=== PATIENT | male | born 1945 | race Caucasian/White ===

== ENCOUNTER 2016-04-14 10:36 | Inpatient (IN) | payer MEDICARE ==
[2016-04-14 11:56] LABS: Glucose,Whole Blood 138 mg/dL (75-99)
[2016-04-14] MEDS ORDERED: SODIUM CHLORIDE 0.9% 1,000 ML IV SCH (12:15)
[2016-04-14] MEDS ORDERED: diphenhydrAMINE 50 MG/ML 1 ML VIAL ONE (12:30)
[2016-04-14] MEDS ORDERED: LIDOCAINE 2% INJ 20 MG/ML (20 ML MDV) ONE (12:30)
[2016-04-14] MEDS ORDERED: MIDAZOLAM 2 MG/2 ML VIAL ONE (12:30)
[2016-04-14] MEDS ORDERED: HEPARIN SODIUM 1,000 UNIT/ML VIAL ONE (12:40)
[2016-04-14] MEDS ORDERED: VERAPAMIL 2.5 MG/ML 2 ML AMP ONE (12:40)
[2016-04-14] MEDS ORDERED: SODIUM CHLORIDE 0.9% (PF) 10 ML VIAL ONE (12:40)
[2016-04-14] MEDS ORDERED: SODIUM CHLORIDE 0.9% 500 ML IV ONE (12:45)
[2016-04-14] MEDS ORDERED: MIDAZOLAM 2 MG/2 ML VIAL IVP ONE (12:50)
[2016-04-14] MEDS ORDERED: diphenhydrAMINE 50 MG/ML 1 ML VIAL IVP ONE (12:50)
[2016-04-14] MEDS ORDERED: LIDOCAINE 2% INJ 20 MG/ML SQ ONE (12:51)
[2016-04-14] MEDS ORDERED: VERAPAMIL SYRINGE (5 MG/10 ML) INTRAARTER ONE (12:53)
[2016-04-14] MEDS ORDERED: HEPARIN SODIUM 1,000 UNIT/ML VIAL IV ONE (12:56)
[2016-04-14] MEDS ORDERED: BIVALIRUDIN BOLUS 250 MG/50 ML IV ONE (13:08)
[2016-04-14] MEDS ORDERED: BIVALIRUDIN 250 MG in SODIUM CHLORIDE 0.9% 50 ML IV ONE (13:09)
[2016-04-14] MEDS ORDERED: TIROFIBAN 12.5MG-250ML NS 250 ML IV ONE (13:09)
[2016-04-14] MEDS ORDERED: NITROGLYCERIN SL TABS 0.4 MG TAB SUBLINGUAL ONE ×2 (13:12)
[2016-04-14] MEDS ORDERED: NITROGLYCERIN 1000MCG/10ML SYRINGE INTRACORON ONE (13:20)
[2016-04-14] MEDS ORDERED: ASPIRIN 81 MG CHEW ONE (13:26)
[2016-04-14] MEDS ORDERED: CLOPIDOGREL 75 MG TAB ONE (13:26)
[2016-04-14] MEDS ORDERED: HYDROmorphone 2 MG/ML 1 ML SYRINGE ONE (13:30)
[2016-04-14] MEDS ORDERED: HYDROmorphone 2 MG/ML 1 ML SYRINGE IVP ONE (13:30)
[2016-04-14] MEDS ORDERED: RX INFO: IV CONTRAST WAS GIVEN 1 EACH MISC MISCELLANE PRN (13:34)
[2016-04-14] MEDS ORDERED: ZOLPIDEM 5 MG TAB PO PRN (13:34)
[2016-04-14] MEDS ORDERED: CLOPIDOGREL 75 MG TAB PO ONE (13:34)
[2016-04-14] MEDS ORDERED: IOHEXOL 350 MG/ML 100 ML BOTTLE INJ ONE (13:34)
[2016-04-14] MEDS ORDERED: MAG HYDROX/AL HYDROX/SIMETH 30 ML CUP PO PRN (13:34)
[2016-04-14] MEDS ORDERED: ATROPINE SULFATE 0.1 MG/ML 10ML SYRINGE IV PRN (13:34)
[2016-04-14] MEDS ORDERED: ASPIRIN 81 MG CHEW PO ONE (13:34)
[2016-04-14] MEDS ORDERED: NITROGLYCERIN SL TABS 0.4 MG TAB SUBLINGUAL PRN (13:34)
[2016-04-14] MEDS: SODIUM CHLORIDE 0.9% 1,000 ML IV SCH (14:03)
[2016-04-14 14:33] VITALS: BMI 27.3
[2016-04-14] MEDS ORDERED: LOSARTAN 50 MG TAB PO SCH (15:45)
[2016-04-14 16:48] LABS: Glucose,Whole Blood 162 mg/dL (75-99)
[2016-04-14] MEDS ORDERED: ATORVASTATIN 80 MG TAB PO SCH (21:00)
[2016-04-14] MEDS ORDERED: METOPROLOL TARTRATE 25 MG TAB PO SCH (21:00)
[2016-04-14] MEDS: METOPROLOL TARTRATE 25 MG TAB PO SCH (21:09)
[2016-04-14] MEDS: ACETAMINOPHEN TAB 325 MG TAB PO PRN (21:10)
--- NOTE | 2016-04-14 21:44 | CC ---
DATE OF SERVICE: 04/14/2016 PROCEDURE: Left heart catheterization and coronary angiography. PERFORMED BY: Dr. Micheal Mansfield. CLINICAL INFORMATION: Mr. Bowens is a 70-year-old gentleman with a history of hypertension, hyperlipidemia, who sees a primary care physician in the [place] area. He presented to [facility] with episode of syncope and also had nondescript chest tightness. He had short runs of wide QRS tachycardia. Troponin profile suggests a non-ST elevation [place] up to 0.12. Given his abnormal EKG, ventricular arrhythmia, syncope and also a non-ST elevation [place], he was advised cardiac catheterization and transferred here for the procedure. PROCEDURE NOTE: Under local anesthesia and strict aseptic precautions, a 6 Colombian introducer was placed in the right radial artery. Using an Ultimate 1 catheter, I performed coronary angiography and a pigtail catheter was used to check LV pressures. I again checked right coronary images using a 3.5 curved right Hannah catheter. Patient had a significant 99% stenosis involving the mid circumflex prior to origin of a fairly decent-sized PDA branch. He had moderate disease in the LAD of about 30% to 40% throughout and also in RCA and other branches of circumflex also had minor irregularities. He was advised intervention of circumflex that was performed expeditiously. CARDIAC CATHETERIZATION FINDINGS: the left ventricular end-diastolic pressure was 12 mmHg without any gradient across the aortic valve. CORONARY ANGIOGRAPHY: Right coronary artery: Dominant vessel gives off distally 2 small branches, PDA and PLV, both of which supply a fair amount of myocardium. The proximal and mid LAD had multiple areas of narrowing of 30% to 40%, but no critical stenosis is noted. Left main coronary artery: This vessel filling almost has what seems to be a separate origin or a very short left main. There is no significant disease in the left main itself. Left anterior descending coronary artery: This is a good caliber vessel, extends along the anterior wall proximally, has about a 30% to 35% narrowing with moderate calcification, gives off a good-sized a diagonal branch that has an ostial lesion of almost 40% to 50% and after the ostial lesion, there is another 30% narrowing. Then the caliber of the LAD improves. It gives off a good-sized second diagonal, then the caliber of the LAD is again narrowed up of 51% and after that, there is diffuse disease throughout until the apex. The LAD therefore has multiple 40% to 50% narrowings and there are 2 diagonal branches. The proximal diagonal is the larger one, has a 50% lesion. Second diagonal is a small caliber, fair distribution vessel, has a 30% to 40% narrowing. After the second diagonal, there is a 50% narrowing in the LAD and it has diffuse disease all the way to the apex. Left posterior circumflex coronary artery: Technically, a nondominant/co-dominant vessel, almost comes in a [id number] origin, gives off a high first obtuse marginal which has a 30% to 40% of narrowing. A second obtuse marginal is noted and second obtuse marginal has no significant disease. Then the continuation of the circumflex has minor irregularities, gives off an AV groove branch and then in the PDA branch, there is a 95% stenosis and the PDA is of a fair caliber, fair distribution. The circumflex therefore has a mid lesion of 95% after 2 obtuse marginal branches. First obtuse marginal has a 40% narrowing. Second is free of significant disease. The PDA is a fair caliber vessel. Prior to the origin, there is a 95% stenosis. LEFT VENTRICULOGRAM: This was not performed. FINAL IMPRESSION: This patient has diffuse disease in right coronary artery and left anterior descending artery, especially left anterior descending artery has multiple areas of diffuse narrowing and the diagonal has a 40% to 50% narrowing. Right coronary artery has another 30% to 40% narrowing. The circumflex is probably almost co-dominant, comes off [id number] next to the left anterior descending artery. The mid circumflex has a 95% stenosis before the origin of the posterior descending artery branch. The left ventricular pressures are normal. There is no gradient across the aortic valve. RECOMMENDATIONS: I recommend intervention of the circumflex, proceeded to perform the same setting.
--- NOTE | 2016-04-14 21:53 | PTCA ---
DATE OF SERVICE: 04/14/2016 PROCEDURE: PTCA and stenting of mid circumflex. PERFORMED BY: Dr. Micheal Mansfield. CLINICAL INFORMATION: Mr. Bowens is a 70-year-old gentleman with a history of hypertension, hyperlipidemia, who sees a primary care physician in the [place] area. He presented to [facility] with episode of syncope and also had nondescript chest tightness. He had short runs of wide QRS tachycardia. Troponin profile suggested a non-ST elevation [place] of up to 0.12. Given his abnormal EKG, ventricular arrhythmia, syncope and also a non-ST elevation [place], he was advised cardiac catheterization and transferred here for the procedure. Following coronary angiography, I recommended intervention of circumflex and proceeded to perform this in the same setting. This patient with a non-ST elevation [place] and has a 95% mid circumflex lesion prior to the origin of a fair-caliber PDA branch. The existing 6 Uzbek introducer in the right radial artery was used to perform the procedure. I used a JL 4.5 curved ( ) catheter to cannulate the left coronary artery. A BMW wire was used to cross the lesion. Pre-dilatation was performed using a 12 mm long, 2.25 caliber Trek balloon. I then advanced a 2.25 caliber, 12 mm Xience stent and deployed this at 12 atmospheres. Patient did not have any significant chest pain, but had some more prominent EKG changes. Excellent angiographic result was achieved without complication. He received Angiomax bolus and infusion as per protocol. He received 600 mg of Plavix. The sheath was taken out and a TR band applied as per protocol and he was sent to the room in stable condition. Excellent angiographic result without complication was achieved. It is also discussed with the patient and also family members, specifically his son. I expect he will be discharged tomorrow if he remains stable. He received Angiomax and bolus as per protocol and also 600 mg of Plavix orally.
[2016-04-15] MEDS: ACETAMINOPHEN TAB 325 MG TAB PO PRN (03:31)
[2016-04-15] MEDS ORDERED: amLODIPine 5 MG TAB PO STA ×2 (03:41→06:53)
[2016-04-15] MEDS: SODIUM CHLORIDE 0.9% 1,000 ML IV SCH (03:54)
[2016-04-15] MEDS ORDERED: LOSARTAN 50 MG TAB PO STA (06:52)
[2016-04-15 07:22] LABS: Basophils % (A) 0 %; CH 31.2; CHCM 33.4; Eosinophils # (A) 0.3 k/uL (0-0.7); Eosinophils % (A) 4 %; HCT 40.3 % (39.0-53.0); HDW 2.78; HGB 13.1 gm/dL (13.0-17.5); Luc # (Auto) 0.17; Luc % (Auto) 3; Lymphocytes # (A) 1.6 k/uL (1.0-4.8); Lymphocytes % (A) 25 %; MCH 30.4 pg (25.0-35.0); MCHC 32.4 g/dL (31.0-37.0); MCV 93.6 fL (80.0-100.0); Mean Platelet Volume 6.8; Monocytes # (A) 0.3 k/uL (0-1.0); Monocytes % (A) 5 %; Neutrophils # (A) 4.3 k/uL (1.3-7.7); Neutrophils % (A) 64 %; RBC 4.31 m/uL (4.30-5.90); RDW 13.5 % (11.5-15.5); WBC 6.7 k/uL (3.8-10.6); WBC (Perox) 7.35
[2016-04-15 07:24] LABS: Anion Gap 11 mmol/L; Blood Urea Nitrogen 15 mg/dL (9-20); Calcium 8.9 mg/dL (8.4-10.2); Carbon Dioxide 27 mmol/L (22-30); Chloride 106 mmol/L (98-107); Glucose 107 mg/dL (74-99); Non-African American GFR(MDRD) >60 (>60 ml/min/1.73 sqM); Sodium 144 mmol/L (137-145)
[2016-04-15] MEDS: METOPROLOL TARTRATE 25 MG TAB PO SCH (07:38)
[2016-04-15 07:41] VITALS: RESP 16
[2016-04-15] MEDS ORDERED: ATORVASTATIN 20 MG TAB PO SCH (09:00)
[2016-04-15] MEDS ORDERED: ASPIRIN 81 MG CHEW PO SCH ×2 (09:00)
[2016-04-15 10:48] VITALS: BP 150/76; PULSE 62; TEMP 97.6
[2016-04-15] MEDS ORDERED: CLOPIDOGREL 75 MG TAB PO SCH (12:00)
[2016-04-15] MEDS ORDERED: LOSARTAN 50 MG TAB PO SCH (12:00)
--- NOTE | 2016-04-15 19:17 | DS ---
DATE OF ADMISSION: 04/14/2016 DATE OF DISCHARGE: 04/15/2016 DISCHARGE DIAGNOSES: 1. Pir-[id number] myocardial infarction. 2. Hypertension. 3. Hypercholesterolemia. PROCEDURES PERFORMED: Left heart catheterization and coronary angiography and PTCA and stenting of circumflex coronary artery with a drug-eluting stent. Mr. Bowens was transferred from [facility] because of a non-ST elevation [place]. He underwent cardiac catheterization and stenting of circumflex from right radial approach uneventfully. Excellent angiographic result was achieved. His postprocedure course was unremarkable. His labs are pending. EKG revealed sinus mechanism, inferolateral nonspecific ST-T changes compatible to baseline. He is absolutely symptom-free. Blood pressure is slightly elevated. I have given him additional losartan 100 mg, and also Norvasc. If the blood pressure is well controlled, he will be discharged home by noon today. Discharge instructions regarding activity, diet and medications were reviewed with the patient as well as his with his son yesterday. I will see him in the office on the at 4:00 p.m. He is advised to do limited activity, especially with his right hand. The right radial cath site is clean and dry with a good pulse. Physical exam revealed blood pressure of 190/80, pulse rate is about 66 per minute. There is no JVD or carotid bruit. S1, S2 heard normally. Short systolic murmur noted. Lungs are clear. Abdomen and lower extremity exam is unremarkable. Right radial cath site is clean and dry. The patient will be discharged, blood pressure control is good and after he is ambulatory without symptoms. I will see him in the office on the of this month.
--- NOTE | 2016-04-15 20:34 | HP ---
DATE OF ADMISSION: 04/14/2016 HISTORY AND PHYSICAL EXAMINATION/DISCHARGE SUMMARY: This is a patient that was seen by our team at [facility]. Patient was transferred here due to intermittent episodes of wide complex tachycardia and prolonged episode of syncope. Patient underwent a cardiac catheterization overnight and received a PCI and PTCA. Although the patient was not physically seen during this hospitalization. Patient was discharged by cardiology. Medications were appropriately reconciled by Dr. Micheal Mansfield. Patient is to follow up with Dr. Mansfield in the next week. Please referred to a consult note for further details of this admission.
[2016-04-15] MEDS ORDERED: amLODIPine 5 MG TAB PO SCH (21:00)
[2016-04-15] MEDS ORDERED: DOXAZOSIN 2 MG TAB PO SCH (21:00)
[2016-04-16] MEDS ORDERED: LOSARTAN 50 MG TAB PO SCH (09:00)
== END 2016-04-15 12:02 | disposition home or self-care (01) | DRG 247 ==
LOC: 6SEL 12:01
PROVIDERS: ADMIT Internal Medicine; ATTEND Internal Medicine
PROC: B2111ZZ Fluoroscopy of Multiple Coronary Arteries using Low Osmolar Contrast (ICD-10-PCS; principal; 2016-04-14 12:30)
PROC: 027034Z Dilation of Coronary Artery, One Artery with Drug-eluting Intraluminal Device, Percutaneous Approach (ICD-10-PCS; principal; 2016-04-14 12:30)
PROC: 4A023N7 Measurement of Cardiac Sampling and Pressure, Left Heart, Percutaneous Approach (ICD-10-PCS; principal; 2016-04-14 12:30)
DX: I21.4 Non-ST elevation (NSTEMI) myocardial infarction (principal); I10 Essential (primary) hypertension; E78.5 Hyperlipidemia, unspecified; E78.00 Pure hypercholesterolemia, unspecified; Z79.899 Other long term (current) drug therapy; I25.10 Atherosclerotic heart disease of native coronary artery without angina pectoris
CPT/HCPCS: 80048; 85025; 93458

== ENCOUNTER → 2016-09-20 | Outpatient (CLI) | payer MEDICARE ==
--- NOTE | 2016-09-20 10:35 | XR ---
EXAMINATION TYPE: XR cervical spine limited DATE OF EXAM: 09/20/2016 CLINICAL HISTORY: pain TECHNIQUE: 3 views of the cervical spine are submitted. COMPARISON: None. FINDINGS: There is satisfactory in alignment without evidence of acute fracture or dislocation. The pre-vertebral soft tissue appears within normal limits. Moderate degenerative disc space narrowing a t C4-5 through C6-7 with ventral spondylosis. Facet joint arthropathy noted. The C1-C2 articulation i s unremarkable on the open mouth view. IMPRESSION: No acute fracture or dislocation is seen in the cervical spine.
== END ==
LOC: RADXRMAIN 10:03
PROVIDERS: ATTEND Family Medicine
DX: M43.6 Torticollis (principal)
CPT/HCPCS: 72040

== ENCOUNTER 2016-11-03 11:45 | Emergency (ER) | payer MEDICARE ==
[2016-11-03 11:53] VITALS: TEMP 98.9
[2016-11-03] MEDS ORDERED: predniSONE 50 MG TAB PO STA (12:36)
[2016-11-03] MEDS ORDERED: HYDROcodone/APAP 7.5-325MG 1 EACH TAB PO ONE (12:36)
--- NOTE | 2016-11-03 13:28 | ED ---
Neck Injury/Pain HPI - General Chief Complaint: Neck Pain/Injury Stated Complaint: NECK, SHOULDER, BACK AND LEFT ARM PAIN Time Seen by Provider: 11/03/16 12:05 Source: patient, family, RN notes reviewed Mode of arrival: wheelchair Limitations: no limitations - History of Present Illness Initial Comments: This is a 71-year-old male who states she's been having neck pain for the past week or so he has had intermittent episodes of this over the recent past. He states he has pain and radiates down to his left shoulder into his left arm. He gets worse with movements and positional changes. He has no cough fevers chills nausea vomiting sweats or other symptoms. 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 Additionally he was acting really for the medication at home he did have an injection he states recently in his scalp. MD Complaint: neck pain - Related Data Home Medications Medication Instructions Recorded Confirmed Doxazosin [Cardura] 2 mg PO DAILY 04/14/16 04/14/16 Previous Rx's Medication Instructions Recorded Aspirin 81 mg PO DAILY #90 chew 04/15/16 Clopidogrel [Plavix] 75 mg PO DAILY #90 tab 04/15/16 Doxazosin [Cardura] 2 mg PO HS tab 04/15/16 Metoprolol Tartrate [Lopressor] 25 mg PO BID #180 tab 04/15/16 Nitroglycerin Sl Tabs [Nitrostat] 0.4 mg SUBLINGUAL Q5M PRN #25 tab 04/15/16 amLODIPine [Norvasc] 5 mg PO BID #90 tab 04/15/16 Hydrocodone/Acetaminophen [[place] 1 each PO Q6HR PRN #20 tab 11/03/16 5-325] predniSONE 20 mg PO BID #10 tab 11/03/16 Allergies Allergy/AdvReac Type Severity Reaction Status Date / Time shellfish derived [Shellfish] Allergy Severe Swelling Verified 11/03/16 11:53 cabbage AdvReac Mild Nausea & Verified 11/03/16 11:53 Vomiting & Diarrhea Review of Systems ROS Statement: Those systems with pertinent positive or pertinent negative responses have been documented in the HPI. ROS Other: All systems not noted in ROS Statement are negative. Past Medical History Past Medical History: Cancer, Diabetes Mellitus, Hyperlipidemia, Hypertension, Myocardial Infarction ([place]), Prostate Disorder Additional Past Medical History / Comment(s): BORDERLINE DM, PROSTATE AND GALLBLADDER CA, LEFT EYE BLOOD CLOT History of Any Multi-Drug Resistant Organisms: None Reported Past Surgical History: Adenoidectomy, Cholecystectomy, Heart Catheterization With Stent, Prostate Surgery, Tonsillectomy Past Anesthesia/Blood Transfusion Reactions: No Reported Reaction Past Psychological History: No Psychological Hx Reported Smoking Status: Former smoker Past Alcohol Use History: None Reported Past Drug Use History: None Reported General Exam - General Exam Comments Initial Comments: This is a well-developed well-nourished awake alert oriented 3 male Limitations: no limitations General appearance: alert Head exam: Present: atraumatic, normocephalic, normal inspection Eye exam: Present: normal appearance, PERRL, EOMI. Absent: scleral icterus, conjunctival injection, periorbital swelling ENT exam: Present: normal exam, mucous membranes moist Neck exam: Present: normal inspection, tenderness (Tenderness palpation along the left lateral neck musculature and trapezius muscle no spinous process tenderness.), full ROM. Absent: meningismus, lymphadenopathy Respiratory exam: Present: normal lung sounds bilaterally. Absent: respiratory distress, wheezes, rales, rhonchi, stridor Cardiovascular Exam: Present: regular rate, normal rhythm, normal heart sounds. Absent: systolic murmur, diastolic murmur, rubs, gallop, clicks GI/Abdominal exam: Present: normal bowel sounds. Absent: distended, tenderness , guarding, rebound, rigid Extremities exam: Present: normal inspection, full ROM, tenderness (Tenderness palpation of the anterior rotator cuff and pectoralis muscle group. This is on the left.), normal capillary refill. Absent: pedal edema, joint swelling, calf tenderness Back exam: Present: normal inspection, full ROM, other (As stated above along the left trapezius musculature.) Neurological exam: Present: alert, oriented X3, CN II-XII intact Psychiatric exam: Present: normal affect, normal mood Skin exam: Present: warm, dry, intact, normal color. Absent: rash Course Vital Signs 11/03/16 11:47 Temperature 98.9 F Pulse Rate 72 Respiratory 16 Rate Blood Pressure 137/66 O2 Sat by Pulse 96 Oximetry Medical Decision Making - Medical Decision Making I did discuss findings with the patient family members the presentation is consistent with cervical radiculopathy. Patient will be placed on oral steroids as well as pain medication to augment when he already has. He is follow-up with his doctor and return when necessary - Radiology Data Radiology results: report reviewed (I did review the imaging and reports evidence of degenerative changes no acute findings however.), image reviewed Disposition Clinical Impression: Cervical radiculopathy Disposition: HOME SELF-CARE Condition: Good Instructions: Cervical Radiculopathy (ED), Neck Pain (ED) Prescriptions: Hydrocodone/Acetaminophen [[place] 5-325] 1 each PO Q6HR PRN #20 tab PRN Reason: Pain predniSONE 20 mg PO BID #10 tab Referrals: Kristine Liu MD [Primary Care Provider] - 1-2 days
--- NOTE | 2016-11-03 13:36 | XR ---
EXAMINATION TYPE: XR cervical spine comp DATE OF EXAM: 11/03/2016 TECHNIQUE: Frontal, lateral, oblique, and open mouth view of the cervical spine are obtained. HISTORY: Pain chronic neck pain COMPARISON: Cervical spine x-ray September 20, 2016 FINDINGS: The cervical spine is visualized in its entirety from C1 thru the top of T1 level, there i s redemonstration of loss of normal cervical curvature without evidence of acute fracture or dislocat ion. The pre-vertebral soft tissue appears within normal limits. The C1-C2 articulation is within n ormal limits on the open mouth view. Vertebral body heights are maintained. There is moderate to advanced disc space narrowing and spurrin g at C6-C7 level redemonstrated. There is mild disc space narrowing with advanced spurring at C5-C6 l evel redemonstrated. There is mild to moderate spurring and disc space narrowing at C4-C5 level redem onstrated. The oblique images demonstrated bilateral mild to moderate multilevel neural foraminal vj rowing in the mid cervical spine due to marginal osteophytes. There is mild to moderate calcified tono que in the bilateral carotid bulbs suspected. IMPRESSION: Loss of normal cervical curvature with multilevel degenerative changes most prominent in the mid cervical spine redemonstrated. No significant change from prior study is identified.
[2016-11-03 13:45] VITALS: BP 133/67; PULSE 64; RESP 20
== END 2016-11-03 13:45 | disposition home or self-care (01) ==
LOC: EC 11:45
DX: M54.12 Radiculopathy, cervical region (principal); I10 Essential (primary) hypertension; I25.2 Old myocardial infarction; E78.5 Hyperlipidemia, unspecified; Z91.013 Allergy to seafood; Z91.018 Allergy to other foods; Z79.899 Other long term (current) drug therapy; Z87.891 Personal history of nicotine dependence
CPT/HCPCS: 99283; 72050; J7512

== ENCOUNTER 2016-11-14 14:02 | Emergency (ER) | payer MEDICARE ==
[2016-11-14 14:12] VITALS: RESP 18
--- NOTE | 2016-11-14 14:40 | ED ---
General Adult HPI - General Chief complaint: Abdominal Pain Stated complaint: Constipated and cannot urinate Time Seen by Provider: 11/14/16 14:10 Source: patient, RN notes reviewed Mode of arrival: ambulatory Limitations: no limitations - History of Present Illness Initial comments: This is a 71-year-old male who presents emergency Department complaining of constipation for 4 days and urinary retention since this morning. Patient denies any fever chills. Patient states she's been taking tramadol presents to get much been constant. Patient states is the second time in the last couple weeks that has had to come to the emergency department because of constipation. Patient complains of some suprapubic abdominal distention and tenderness. Patient denies any recent history of vomiting or diarrhea. Patient denies any chest pain difficulty breathing shortness breath. Patient denies any lightheadedness or dizziness. Patient denies any back pain. Patient denies any recent injury or trauma. - Related Data Home Medications Medication Instructions Recorded Confirmed Doxazosin [Cardura] 2 mg PO DAILY 04/14/16 11/14/16 Atorvastatin [Lipitor] 40 mg PO DAILY 11/14/16 11/14/16 Cyanocobalamin [Vitamin B-12] 500 mcg PO TID 11/14/16 11/14/16 Ibuprofen [Motrin] 400 mg PO Q6HR PRN 11/14/16 11/14/16 Losartan Potassium [Cozaar] 100 mg PO DAILY 11/14/16 11/14/16 Metoprolol Tartrate [Lopressor] 25 mg PO DAILY 11/14/16 11/14/16 Prevagen 1 tab PO DAILY 11/14/16 11/14/16 Previous Rx's Medication Instructions Recorded Aspirin 81 mg PO DAILY #90 chew 04/15/16 Clopidogrel [Plavix] 75 mg PO DAILY #90 tab 04/15/16 amLODIPine [Norvasc] 5 mg PO BID #90 tab 04/15/16 Allergies Allergy/AdvReac Type Severity Reaction Status Date / Time shellfish derived [Shellfish] Allergy Severe Swelling Verified 11/14/16 14:27 cabbage AdvReac Mild Nausea & Verified 11/14/16 14:27 Vomiting & Diarrhea Review of Systems ROS Statement: Those systems with pertinent positive or pertinent negative responses have been documented in the HPI. ROS Other: All systems not noted in ROS Statement are negative. Past Medical History Past Medical History: Cancer, Diabetes Mellitus, Hyperlipidemia, Hypertension, Myocardial Infarction ([place]), Prostate Disorder Additional Past Medical History / Comment(s): BORDERLINE DM, PROSTATE AND GALLBLADDER CA, LEFT EYE BLOOD CLOT History of Any Multi-Drug Resistant Organisms: None Reported Past Surgical History: Adenoidectomy, Cholecystectomy, Heart Catheterization With Stent, Prostate Surgery, Tonsillectomy Past Anesthesia/Blood Transfusion Reactions: No Reported Reaction Past Psychological History: No Psychological Hx Reported Smoking Status: Former smoker Past Alcohol Use History: None Reported Past Drug Use History: None Reported General Exam - General Exam Comments Initial Comments: GENERAL: Patient is well-developed and well-nourished. Patient is nontoxic and well- hydrated and is in mild distress. ENT: Neck is soft and supple. No significant lymphadenopathy is noted. Oropharynx is clear. Moist mucous membranes. Neck has full range of motion without eliciting any pain. EYES: The sclera were anicteric and conjunctiva were pink and moist. Extraocular movements were intact and pupils were equal round and reactive to light. Eyelids were unremarkable. PULMONARY: Unlabored respirations. Good breath sounds bilaterally. No audible rales rhonchi or wheezing was noted. CARDIOVASCULAR: There is a regular rate and rhythm without any murmurs gallops or rubs. ABDOMEN: Mild suprapubic distention. Mild tenderness on palpation SKIN: Skin is clear with no lesions or rashes and otherwise unremarkable. NEUROLOGIC: Patient is alert and oriented x3. Cranial nerves II through XII are grossly intact. Motor and sensory are also intact. Normal speech, volume and content. Symmetrical smile. MUSCULOSKELETAL: Normal extremities with adequate strength and full range of motion. No lower extremity swelling or edema. No calf tenderness. LYMPHATICS: No significant lymphadenopathy is noted PSYCHIATRIC: Normal psychiatric evaluation. Limitations: no limitations Course Vital Signs 11/14/16 11/14/16 11/14/16 14:11 15:27 16:34 Temperature 97.8 F 99.2 F 99.9 F H Pulse Rate 94 83 80 Respiratory 18 18 18 Rate Blood Pressure 144/68 149/72 128/84 O2 Sat by Pulse 96 95 97 Oximetry Medical Decision Making - Lab Data Result diagrams: 11/14/16 15:25 11/14/16 15:25 Lab Results 11/14/16 11/14/16 11/14/16 Range/Units 14:55 15:25 15:25 WBC 15.0 H (3.8-10.6) k/uL RBC 4.00 L (4.30-5.90) m/uL Hgb 12.8 L (13.0-17.5) gm/dL Hct 36.3 L (39.0-53.0) % MCV 90.7 (80.0-100.0) fL MCH 31.9 (25.0-35.0) pg MCHC 35.2 (31.0-37.0) g/dL RDW 14.6 (11.5-15.5) % Plt Count 232 (150-450) k/uL Neutrophils % 86 % Lymphocytes % 7 % Monocytes % 5 % Eosinophils % 1 % Basophils % 0 % Neutrophils # 12.9 H (1.3-7.7) k/uL Lymphocytes # 1.1 (1.0-4.8) k/uL Monocytes # 0.7 (0-1.0) k/uL Eosinophils # 0.1 (0-0.7) k/uL Basophils # 0.0 (0-0.2) k/uL Sodium 137 (137-145) mmol/L Potassium 4.0 (3.5-5.1) mmol/L Chloride 103 (98-107) mmol/L Carbon Dioxide 25 (22-30) mmol/L Anion Gap 9 mmol/L BUN 13 (9-20) mg/dL Creatinine 1.02 (0.66-1.25) mg/dL Est GFR (MDRD) Af Amer >60 (>60 ml/min/1.73 sqM) Est GFR (MDRD) Non-Af >60 (>60 ml/min/1.73 sqM) Glucose 130 H (74-99) mg/dL Calcium 9.4 (8.4-10.2) mg/dL Total Bilirubin 1.3 (0.2-1.3) mg/dL AST 30 (17-59) U/L ALT 83 H (21-72) U/L Alkaline Phosphatase 101 (38-126) U/L Total Protein 6.3 (6.3-8.2) g/dL Albumin 3.8 (3.5-5.0) g/dL Urine Color Dark Brown Urine Appearance Clear (Clear) Urine pH 5.5 (5.0-8.0) Ur Specific Thayer 1.017 (1.001-1.035) Urine Protein Trace H (Negative) Urine Glucose (UA) Negative (Negative) Urine Ketones Negative (Negative) Urine Blood Small H (Negative) Urine Nitrite Negative (Negative) Urine Bilirubin Negative (Negative) Urine Urobilinogen 4.0 (<2.0) mg/dL Ur Leukocyte Esterase Negative (Negative) Urine RBC 39 H (0-5) /hpf Urine WBC 2 (0-5) /hpf Hyaline Casts 13 H (0-2) /lpf Urine Mucus Rare H (None) /hpf Disposition Clinical Impression: Constipation Disposition: HOME SELF-CARE Condition: Good Instructions: Constipation (ED) Referrals: Kristine Liu MD [Primary Care Provider] - 1-2 days Time of Disposition: 18:39
--- NOTE | 2016-11-14 14:48 | XR ---
EXAMINATION TYPE: XR KUB DATE OF EXAM: 11/14/2016 COMPARISON: NONE HISTORY: Pain TECHNIQUE: Single supine KUB image of the abdomen is obtained FINDINGS: Small bowel demonstrates no evidence for dilatation. Scattered nonspecific air-fluid level seen. Gas and fecal material is seen in non-distended colon. No convincing evidence for pneumoperitoneum. No unusual calcifications. The lung bases are clear. The osseous structures are intact. IMPRESSION: 1. Nonspecific bowel gas pattern.
[2016-11-14 15:29] LABS: Appearance,Urine Clear (Clear); Bilirubin,Urine Negative (Negative); Glucose,Urine (UA) Negative (Negative); Ketones,Urine Negative (Negative); Leukocyte Esterase,Urine Negative (Negative); Mucus,Urine Rare /hpf; Nitrite,Urine Negative (Negative); PH, Urine 5.5 (5.0-8.0); Particle Count 3121; Protein,Urine Trace (Negative); RBC,Urine 39 /hpf (0-5); Specific Gravity,Urine 1.017 (1.001-1.035); UA Billing (MACRO vs. MICRO) MICRO; WBC,Urine 2 /hpf (0-5)
[2016-11-14 15:37] LABS: Basophils % (A) 0 %; CH 32.7; CHCM 36.2; Eosinophils # (A) 0.1 k/uL (0-0.7); Eosinophils % (A) 1 %; HCT 36.3 % (39.0-53.0); HDW 2.81; HGB 12.8 gm/dL (13.0-17.5); Luc # (Auto) 0.17; Luc % (Auto) 1; Lymphocytes # (A) 1.1 k/uL (1.0-4.8); Lymphocytes % (A) 7 %; MCH 31.9 pg (25.0-35.0); MCHC 35.2 g/dL (31.0-37.0); MCV 90.7 fL (80.0-100.0); Mean Platelet Volume 7.2; Monocytes # (A) 0.7 k/uL (0-1.0); Monocytes % (A) 5 %; Neutrophils # (A) 12.9 k/uL (1.3-7.7); Neutrophils % (A) 86 %; RDW 14.6 % (11.5-15.5)
[2016-11-14 15:51] LABS: ALT 83 U/L (21-72); AST 30 U/L (17-59); Alkaline Phosphatase 101 U/L (38-126); Anion Gap 9 mmol/L; Blood Urea Nitrogen 13 mg/dL (9-20); Calcium 9.4 mg/dL (8.4-10.2); Carbon Dioxide 25 mmol/L (22-30); Chloride 103 mmol/L (98-107); Glucose 130 mg/dL (74-99); Non-African American GFR(MDRD) >60 (>60 ml/min/1.73 sqM); Sodium 137 mmol/L (137-145); Total Bilirubin 1.3 mg/dL (0.2-1.3); Total Protein 6.3 g/dL (6.3-8.2)
--- NOTE | 2016-11-14 16:38 | CT ---
EXAMINATION TYPE: CT abdomen pelvis wo con DATE OF EXAM: 11/14/2016 COMPARISON: NONE HISTORY: Generalized pain with constipation and inability to urinate CT DLP: 772.9 mGycm Automated exposure control for dose reduction was used. TECHNIQUE: Helical acquisition of images was performed from the lung bases through the pelvis. FINDINGS: There is some atelectasis at the left lung base. There is no pleural effusion. Heart size is normal. Liver shows no focal defect. There are clips from cholecystectomy. Bile ducts are not dilated. Spleen appears normal. There is no pancreatic mass. There is no adrenal mass. Kidneys have normal size and contour. There is no hydronephrosis. Ureters a re not dilated. There is a 1 mm calcification in the lower pole left kidney. There is no retroperitoneal adenopathy. There is no ascites. Appendix appears normal. There is some r etained fecal material in the rectosigmoid colon. Bladder distends smoothly. There are clips from awais arent prostate surgery. I see no bladder mass. There is no evidence of a bony destructive process. Th ere are spondylotic changes in the lumbar spine. Abdominal aorta is atheromatous. IMPRESSION: ATHEROSCLEROTIC VASCULAR DISEASE. CONSTIPATION. NO SIGN OF ACUTE ABDOMEN AND PELVIS. URINARY BLADDER IS NOT DILATED. NO EVIDENCE OF RENAL OBSTRUCTION. PATCHY ATELECTASIS AT THE LEFT LUNG BASE.
[2016-11-14 18:56] VITALS: BP 146/74; PULSE 74; TEMP 100
== END 2016-11-14 18:56 | disposition home or self-care (01) ==
LOC: EC 14:02
DX: K59.00 Constipation, unspecified (principal); E11.9 Type 2 diabetes mellitus without complications; E78.5 Hyperlipidemia, unspecified; I10 Essential (primary) hypertension; I25.2 Old myocardial infarction; Z85.46 Personal history of malignant neoplasm of prostate; Z85.89 Personal history of malignant neoplasm of other organs and systems; Z87.891 Personal history of nicotine dependence; Z79.899 Other long term (current) drug therapy; Z91.013 Allergy to seafood; Z91.018 Allergy to other foods; Z90.49 Acquired absence of other specified parts of digestive tract; Z98.890 Other specified postprocedural states
CPT/HCPCS: 36415; 74000; 74176; 80053; 81001; 85025; 99284

== ENCOUNTER → 2016-12-01 | Outpatient (CLI) | payer MEDICARE ==
--- NOTE | 2016-12-03 00:58 | MR ---
EXAMINATION TYPE: MR cervical spine wo con DATE OF EXAM: 12/01/2016 COMPARISON: NONE HISTORY: Spasmodic Torticollis TECHNIQUE: Multiplanar, multisequence images of the cervical spine were acquired. FINDINGS: The cervical vertebra have fairly normal alignment. There is minimal narrowing of cervical disc spaces. There are small posterior disc bulges at C4-5 C5-6 without significant impingement on th e spinal canal. Cervical spinal cord has normal signal pattern. There is no evidence of edema. Brains tem appears intact. I see no focal bone destruction. There is no compression fracture. There is no ev idence of paraspinal mass. I see no spinal stenosis. The spinal canal measures 9 mm. IMPRESSION: Mild multilevel spondylotic changes. Small anterior and posterior cervical disc herniations at C4-5 C 5-6 without significant impingement on the spinal canal.
== END | disposition home or self-care (01) ==
LOC: RADMRIMAIN 12:02
PROVIDERS: ATTEND Family Medicine
DX: M50.221 Other cervical disc displacement at C4-C5 level (principal); G24.3 Spasmodic torticollis
CPT/HCPCS: 72141

== ENCOUNTER → 2017-04-30 | Outpatient (CLI) | payer MEDICARE ==
--- NOTE | 2017-05-07 10:32 | P.ARTDOP ---
Arterial Doppler LOWER EXTREMITY ARTERIAL DOPPLER: DATE OF SERVICE: 04/30/2016 Reason for study: Suspected lower extremity occlusive disease with foot numbness. Doppler waveforms: Multiphasic bilaterally throughout. Pulse volume recording: Normal configuration. Pressure gradients: None. Ankle-brachial indices: Greater than 1 bilaterally. Toe pressures: [] on the right, [] on the left Impression: Normal study.
== END | disposition home or self-care (01) ==
LOC: RADUSWWP 12:43
PROVIDERS: ATTEND Family Medicine
DX: I73.9 Peripheral vascular disease, unspecified (principal)
CPT/HCPCS: 93923

== ENCOUNTER 2018-08-30 08:56 | Emergency (ER) | payer MEDICARE ==
[2018-08-30 09:11] VITALS: BP 152/84; PULSE 78; RESP 16; TEMP 98.6
[2018-08-30] MEDS ORDERED: ACETAMINOPHEN TAB 325 MG TAB PO STA (09:39)
--- NOTE | 2018-08-30 09:47 | ED ---
General Adult HPI - General Chief complaint: Extremity Injury, Lower Stated complaint: Knee pain Time Seen by Provider: 08/30/18 09:16 Source: patient, RN notes reviewed Mode of arrival: wheelchair Limitations: no limitations - History of Present Illness Initial comments: 73-year-old male with a past medical history of diabetes, hyperlipidemia, hypertension, prostate and gallbladder cancer presents to the emergency department for a chief complaint of right knee pain times about one week. Patient states that one week ago he was laying on the table to have a biopsy done of the skin of his right ankle. States that when they were doing the biopsy they're pressing hard on his right knee and he felt a pop on the lateral side. States that since that time he has had pain with movement. States the pain is worsening and it started to swell yesterday. States he is able to bend and bear weight on the knee. Denies any fevers or chills. Denies any redness of the knee. No history of gout.Patient has no other complaints at this time including shortness of breath, chest pain, abdominal pain, nausea or vomiting, headache, or visual changes. - Related Data Home Medications Medication Instructions Recorded Confirmed Doxazosin [Cardura] 2 mg PO DAILY 04/14/16 11/14/16 Atorvastatin [Lipitor] 40 mg PO DAILY 11/14/16 11/14/16 Cyanocobalamin [Vitamin B-12] 500 mcg PO TID 11/14/16 11/14/16 Ibuprofen [Motrin] 400 mg PO Q6HR PRN 11/14/16 11/14/16 Losartan Potassium [Cozaar] 100 mg PO DAILY 11/14/16 11/14/16 Metoprolol Tartrate [Lopressor] 25 mg PO DAILY 11/14/16 11/14/16 Prevagen 1 tab PO DAILY 11/14/16 11/14/16 Previous Rx's Medication Instructions Recorded Aspirin 81 mg PO DAILY #90 chew 04/15/16 Clopidogrel [Plavix] 75 mg PO DAILY #90 tab 04/15/16 amLODIPine [Norvasc] 5 mg PO BID #90 tab 04/15/16 Allergies Allergy/AdvReac Type Severity Reaction Status Date / Time shellfish derived [Shellfish] Allergy Severe Swelling Verified 08/30/18 09:11 cabbage AdvReac Mild Nausea & Verified 06/29/19 09:11 Vomiting & Diarrhea Review of Systems ROS Statement: Those systems with pertinent positive or pertinent negative responses have been documented in the HPI. ROS Other: All systems not noted in ROS Statement are negative. Past Medical History Past Medical History: Cancer, Diabetes Mellitus, Hyperlipidemia, Hypertension, Myocardial Infarction ([place]), Prostate Disorder Additional Past Medical History / Comment(s): BORDERLINE DM, PROSTATE AND GALLBLADDER CA, LEFT EYE BLOOD CLOT History of Any Multi-Drug Resistant Organisms: None Reported Past Surgical History: Adenoidectomy, Cholecystectomy, Heart Catheterization With Stent, Prostate Surgery, Tonsillectomy Past Anesthesia/Blood Transfusion Reactions: No Reported Reaction Past Psychological History: No Psychological Hx Reported Smoking Status: Former smoker Past Alcohol Use History: None Reported Past Drug Use History: None Reported General Exam Limitations: no limitations General appearance: alert, in no apparent distress Head exam: Present: atraumatic, normocephalic, normal inspection Eye exam: Present: normal appearance, PERRL, EOMI. Absent: scleral icterus, conjunctival injection, periorbital swelling ENT exam: Present: normal exam, mucous membranes moist Neck exam: Present: normal inspection, full ROM. Absent: tenderness, meningismus, lymphadenopathy Respiratory exam: Present: normal lung sounds bilaterally. Absent: respiratory distress, wheezes, rales, rhonchi, stridor Cardiovascular Exam: Present: regular rate, normal rhythm, normal heart sounds. Absent: systolic murmur, diastolic murmur, rubs, gallop, clicks Extremities exam: Present: tenderness (Tenderness to the lateral aspect of the right knee. No tenderness to the posterior aspect of the right knee.), normal capillary refill (Capillary refill less than 2 seconds, DP pulse 2+ in the right lower extremity.), joint swelling (Patient does have edema noted of the right knee. There is no erythema or increased warmth noted of the right knee.), other (Sensation intact in the right lower extremity.). Absent: full ROM (Patient has 90 flexion of the right knee, full range motion of the right ankle and hip.), calf tenderness (No calf tenderness, negative Homans sign.) Neurological exam: Present: alert, oriented X3, CN II-XII intact Psychiatric exam: Present: normal affect, normal mood Course Vital Signs 08/30/18 09:08 Temperature 98.6 F Pulse Rate 78 Respiratory 16 Rate Blood Pressure 152/84 O2 Sat by Pulse 95 Oximetry Medical Decision Making - Medical Decision Making 73-year-old male presents to the emergency department for a chief complaint of right knee pain times one week. Patient had a biopsy about a week ago of the skin of the right ankle. Patient states they held pressure down on his knee for this and he felt a pop in the lateral aspect. States he is ambulatory on it. Denies any erythema. Denies any fevers. On exam patient is 90 flexion of the right knee. There is some edema noted, likely effusion. No erythema or increased warmth noted. No evidence or concern for infection. No calf tenderness. DP pulse 2+ in the right lower extremity and warm to touch. Sensation intact in the right lower extremity. X-ray of the right knee shows no acute osseous lesion. There are the earliest changes of osteoarthritis with a small effusion. At this time there is concern for ligamentous injury. Patient was placed in a knee immobilizer. Patient will follow up with orthopedics in one to 2 days. He will return here if he has any worsening symptoms. Disposition Clinical Impression: Knee effusion, right, Knee injury Disposition: HOME SELF-CARE Condition: Good Instructions (If sedation given, give patient instructions): Knee Pain (ED) Additional Instructions: Please follow up with orthopedics in 1-2 days. Wear knee immobilizer. Use crutches as needed. Please return here to the emergency Department if any worsening symptoms. Is patient prescribed a controlled substance at d/c from ED?: No Referrals: Kristine Liu MD [Primary Care Provider] - 1-2 days Venancio Bass MD [STAFF PHYSICIAN] - 1-2 days Time of Disposition: 10:39
--- NOTE | 2018-08-30 10:14 | XR ---
EXAMINATION TYPE: XR knee complete RT , 3 VIEWS DATE OF EXAM ORDERED: 08/30/2018 HISTORY: Pain. COMPARISON: None. FINDINGS: No fracture or dislocation is seen. There is some peaking of the intercondylar spines. Rossy nt spaces are reasonably well-maintained. There is some fullness in the patellar region. I could not exclude a small effusion. IMPRESSION: 1. NO ACUTE OSSEOUS LESION. 2. EARLIEST CHANGES OF OSTEOARTHRITIS WITH A SMALL, CONCOMITANT EFFUSION.
== END 2018-08-30 11:09 | disposition home or self-care (01) ==
LOC: EC 08:56
DX: S89.91XA Unspecified injury of right lower leg, initial encounter (principal); M17.11 Unilateral primary osteoarthritis, right knee; E78.5 Hyperlipidemia, unspecified; I10 Essential (primary) hypertension; I25.2 Old myocardial infarction; Z85.09 Personal history of malignant neoplasm of other digestive organs; Z85.46 Personal history of malignant neoplasm of prostate; Z95.5 Presence of coronary angioplasty implant and graft; Z87.891 Personal history of nicotine dependence; Z79.899 Other long term (current) drug therapy; Z91.013 Allergy to seafood; Z91.018 Allergy to other foods; Z98.890 Other specified postprocedural states
CPT/HCPCS: 99283; 73562; L1830

== ENCOUNTER → 2018-11-06 | Outpatient (CLI) | payer MEDICARE ==
--- NOTE | 2018-11-06 16:21 | US ---
EXAMINATION TYPE: US thyroid st tissue head/neck DATE OF EXAM: 11/06/2018 COMPARISON: NONE CLINICAL HISTORY: E04.1 THYROID NODULE. Thyroid nodule GLAND SIZE: Right Lobe: 5.2 x 2.7 x 2.7 cm Overall Parenchyma: heterogenous Left Lobe: 5.4 x 2.5 x 2.1 cm Overall Parenchyma: heterogeneous Isthmus Thickness: 0.6 cm NODULES RIGHT: # of nodules measured on right: 2 1. 1.2 X 0.8 x 1.2 cm hypoechoic solid nodule at the upper pole with well-defined margins; . This nodule is wider than tall and shows intranodular vascularity. Prior size: no prior 2. 0.8 X 0.5 x 0.9 cm mixed nodule at the mid pole with well-defined margins; . This nodule is wide r than tall and shows intranodular vascularity. Prior size: no prior LEFT: # of nodules measured on left: 2 1. 0.9 X 0.6 x 0.9 cm hypoechoic solid nodule at the lower pole with well-defined margins; . This nodule is wider than tall and shows no intranodular vascularity. Prior size: no prior 2. 1.5 X 1.1 x 1.4 cm hypoechoic nodule at the lower pole with well-defined margins; . This nodule is wider than tall and shows no intranodular vascularity. Prior size: no prior ISTHMUS: # of nodules measured in the isthmus: 0 Bilateral neck scanned, normal appearing lymph nodes IMPRESSION: Bilateral thyroid nodules. Fine-needle aspiration could be considered of the most dominan t nodules bilaterally given the solid nature and internal vascularity. Alternatively given their size short-term follow-up in 6-12 months could ensure stability if fine-needle aspiration is forgone.
== END | disposition home or self-care (01) ==
LOC: RADUSWWP 15:21
PROVIDERS: ATTEND Internal Medicine
DX: E04.2 Nontoxic multinodular goiter (principal)
CPT/HCPCS: 76536

== ENCOUNTER → 2018-11-07 | Outpatient (CLI) | payer MEDICARE ==
--- NOTE | 2018-11-07 14:36 | XR ---
EXAMINATION TYPE: XR lumbosacral spine min 4V DATE OF EXAM: 11/07/2018 CLINICAL HISTORY: Low back pain with no known injury TECHNIQUE: Frontal, lateral, and oblique images of the lumbar spine are obtained. COMPARISON: 04/22/2012 FINDINGS: There is a dextroscoliosis of the lumbar spine and extensive multilevel degenerative disc d isease. There are bridging anterior osteophytes, facet arthropathy, intervertebral disc space narrowi ng, and endplate sclerosis throughout the lumbar spine. Vertebral body heights of the lumbar spine ar e maintained as well as alignment. Oblique images demonstrate neural foraminal narrowing on the right at L1-L2 and L2-L3 and on the left at L1-L2, L2-L3, and L5-S1. IMPRESSION: No extensive multilevel degenerative disc disease of the lumbar spine comparison to the exam of 2012. Redemonstration of dextroscoliosis. No acute fracture of the lumbar spine.
== END | disposition home or self-care (01) ==
LOC: RADXRMAIN 14:05
PROVIDERS: ATTEND Family Medicine
DX: M41.87 Other forms of scoliosis, lumbosacral region (principal)
CPT/HCPCS: 72110

== ENCOUNTER → 2019-03-09 | Outpatient (CLI) | payer MEDICARE ==
--- NOTE | 2019-03-10 04:58 | CT ---
EXAMINATION TYPE: High-resolution CT chest DATE OF EXAM: 03/09/2019 COMPARISON: None HISTORY: 73-year-old male R06.00, dyspnea, shortness of breath, nodules TECHNIQUE: Contiguous high resolution axial scanning of the chest without IV contrast utilizing 1 mm slice thickness and 1 cm gap per HRCT protocol. Both prone and supine imaging was performed. CT DLP: 1031.5 mGycm Automated exposure control for dose reduction was used. FINDINGS: Heart normal size without pericardial effusion. Three-vessel coronary artery calcifications are prese nt. Upper ascending aorta borderline aneurysmal at 4.0 cm. Mild atherosclerotic arch calcifications. Conv entional arch vessel branching anatomy. Scattered nonenlarged mediastinal lymph nodes. No thoracic lymphadenopathy by CT size criteria. Evaluation of the lungs shows some strandy bibasilar atelectasis and scarring with mild bibasilar bro nchiectasis in the lower lobes. Additional mild dependent atelectasis. No honeycombing, centrilobular or tree-in-bud nodules, and dominant groundglass densities, perilympha tic nodularity, thickening of the bronchovascular bundles, are cystic changes identified. No signific ant interstitial thickening identified. Visualized upper abdomen shows no gross abnormality. Cholecystectomy clips. Bones: Endplate spondylosis mid to lower thoracic spine. IMPRESSION: 1. NOTE THAT IF THERE IS CONCERN FOR UNDERLYING PULMONARY NODULES, A CONVENTIONAL CT OF THE CHEST CAN BE PERFORMED. HRCT IS LIMITED DUE TO RECONSTRUCTION TECHNIQUE. 2. CAD. 3. 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 4. BIBASILAR STRANDY SCARRING WITH ASSOCIATED MILD BIBASILAR ATELECTASIS. HOWEVER, OTHERWISE, THERE A RE NO SPECIFIC HRCT FINDINGS OF INTERSTITIAL LUNG DISEASE OR INTERSTITIAL PNEUMONITIS.
== END | disposition home or self-care (01) ==
LOC: RADCTMAIN 15:59
PROVIDERS: ATTEND Family Medicine
DX: I25.10 Atherosclerotic heart disease of native coronary artery without angina pectoris (principal); J98.11 Atelectasis
CPT/HCPCS: 71250

== ENCOUNTER → 2019-04-02 | Outpatient (CLI) | payer MEDICARE ==
--- NOTE | 2019-04-02 13:36 | CT ---
EXAMINATION TYPE: CT angio chest DATE OF EXAM: 04/02/2019 COMPARISON: CT chest March 09, 2019 HISTORY: Elevated D dimer CT DLP: 439.8 mGycm. Automated Exposure Control for Dose Reduction was Utilized. CONTRAST: CTA scan of the thorax is performed with IV Contrast, patient injected with 100 mL of Isovue 370, pul monary embolism protocol. MIP Images are created on CT scanner and reviewed. FINDINGS: LUNGS: Focal linear scarring in both bases right greater than left just above diaphragm redemonstrate d. Some dependent atelectasis bilateral lower lobes. No suspicious new focal consolidation. There is no pleural effusion or pneumothorax seen. No suspicious nodules or masses. The tracheobronchial tree is patent. MEDIASTINUM: There is slightly suboptimal study with some heterogeneity and near equal contrast in ri ght and left heart systems but no CT evidence for acute pulmonary embolism. There are no greater fadi n 1 cm hilar or mediastinal lymph nodes. No cardiomegaly or pericardial effusion is seen. Moderate to severe coronary artery calcification is redemonstrated which is noted marker for underlying hutchinson ry artery disease. OTHER: Small degree of bilateral subareolar gynecomastia. Cholecystectomy clips. [id number] mul tilevel spurring in the spine. Spleen measures upper limits of normal at 12.7 cm long axis coronal im age 89. IMPRESSION: Suboptimal study without CT evidence for acute pulmonary embolism. No new suspicious acut e pulmonary process.
--- NOTE | 2019-04-02 13:52 | US ---
EXAMINATION TYPE: US venous doppler duplex LE DATE OF EXAM: 04/02/2019 12:45 PM COMPARISON: NONE CLINICAL HISTORY: R79.1 Abnormal Labs, Elevated D dimer,. SIDE PERFORMED: Bilateral TECHNIQUE: The lower extremity deep venous system is examined utilizing real time linear array sonog adriana with graded compression, doppler sonography and color-flow sonography. VESSELS IMAGED: External Iliac Vein (EIV) Common Femoral Vein Deep Femoral Vein Greater Saphenous Vein * Femoral Vein Popliteal Vein Small Saphenous Vein * Proximal Calf Veins (* superficial vessels) Grayscale, color doppler, spectral doppler imaging performed of the deep veins of the lower extremiti es. There is normal flow, compressibility, vascular waveforms. Right Leg: Negative for DVT Left Leg: Negative for DVT IMPRESSION: No sonographic evidence of deep venous thrombosis within either the bilateral lower extre mities.
== END | disposition home or self-care (01) ==
LOC: RADUSMAIN 11:42
PROVIDERS: ATTEND Family Medicine
DX: R79.1 Abnormal coagulation profile (principal)
CPT/HCPCS: 82565; 84520; 93970; 71275; 36415; Q9967

== ENCOUNTER 2019-09-07 09:09 | Day surgery (SDC) | payer MEDICARE ==
[2019-09-03 09:20] VITALS: BMI 28.3
[~2019-09-07 09:09] MED LIST: LACTATED RINGERS 1,000 ML IV SCH
[2019-09-07 09:37] VITALS: TEMP 97.9
[2019-09-07] MEDS ORDERED: LIDOCAINE 1% (10MG/ML) FOR IV START INTRADERMA ONE (09:49)
[2019-09-07 10:14] LABS: Glucose,Whole Blood 92 mg/dL (75-99)
[2019-09-07] MEDS ORDERED: LIDOCAINE 1% INJ 10MG/ML (20 ML MDV) ONE (10:53)
[2019-09-07] MEDS ORDERED: PROPOFOL 10 MG/ML 20 ML VIAL IV ONE (10:53)
--- NOTE | 2019-09-07 11:17 | P.PCN ---
Date of Procedure: 09/07/19 Description of Procedure: BRIEF HISTORY: Patient is a 74-year-old male who presents for outpatient esophagogastroduodenoscopy for evaluation of melena. Reports some dark colored bowel movements occurring over the last few weeks. Does report a remote history of peptic ulcer disease. Denies any abdominal pain. Denies any reflux disease. PROCEDURE PERFORMED: Esophagogastroduodenoscopy with biopsy. PREOPERATIVE DIAGNOSIS: Melena. ESTIMATED BLOOD LOSS: Minimal. IV sedation per anesthesia. PROCEDURE: After informed consent was obtained, the patient was brought into the endoscopy unit. IV sedation was administered by Anesthesia under continuous monitoring. Initially the Olympus GIF-190 video endoscope was inserted into the mouth. Esophagus intubated without any difficulty. It was gradually advanced into the stomach and duodenum and carefully examined. The bulb and the second part of the duodenum appeared normal, with biopsies taken. The scope at this time was withdrawn to the stomach, adequately insufflated with air, and upon careful examination, mucosa of the antrum, body, cardia and the fundus appeared normal, except for some mild scattered erythema in the antrum and body suggestive of mild gastritis with biopsies taken. There was also a thickened fold in the antrum just proximal to the pylorus which appeared benign in nature, but was biopsied. The scope was then withdrawn into the esophagus. The GE junction was located at 42 cm from the incisors. The esophagus appeared normal. There were no erosions or ulcerations seen and the patient tolerated the procedure well. IMPRESSION: 1. No active bleeding, old blood or pathology to explain symptoms of melena. 2. Mild gastritis antrum and body, biopsied. 3. Benign-appearing thickened gastric fold in the antrum which was biopsied. 4. Duodenal biopsies. RECOMMENDATIONS: The findings of this examination were discussed with the patient. Okay to resume diet. Okay to resume medications. Await pathology from biopsies. Follow up with primary care physician as previously scheduled.
[2019-09-07 11:20] VITALS: RESP 16
[2019-09-07 11:34] VITALS: BP 143/73; PULSE 58
== END 2019-09-07 11:53 | disposition home or self-care (01) ==
LOC: ORWHC2ENDO 09:09
PROVIDERS: ATTEND Internal Medicine
DX: K29.51 Unspecified chronic gastritis with bleeding (principal); K31.89 Other diseases of stomach and duodenum; I25.2 Old myocardial infarction; I25.10 Atherosclerotic heart disease of native coronary artery without angina pectoris; I10 Essential (primary) hypertension; E11.9 Type 2 diabetes mellitus without complications; M54.2 Cervicalgia; N42.9 Disorder of prostate, unspecified; Z87.891 Personal history of nicotine dependence; Z91.048 Other nonmedicinal substance allergy status; Z91.013 Allergy to seafood; Z91.018 Allergy to other foods; Z88.5 Allergy status to narcotic agent; Z79.899 Other long term (current) drug therapy; Z79.84 Long term (current) use of oral hypoglycemic drugs; Z79.51 Long term (current) use of inhaled steroids; Z90.89 Acquired absence of other organs; Z90.49 Acquired absence of other specified parts of digestive tract; Z98.890 Other specified postprocedural states; Z95.5 Presence of coronary angioplasty implant and graft; Z85.09 Personal history of malignant neoplasm of other digestive organs; Z86.718 Personal history of other venous thrombosis and embolism; Z87.11 Personal history of peptic ulcer disease
CPT/HCPCS: 88305; 88342; 43239; J2001; J2704

== ENCOUNTER 2019-09-30 12:56 | Emergency (ER) | payer MEDICARE ==
[2019-09-30 13:11] VITALS: RESP 18; TEMP 98.1
--- NOTE | 2019-09-30 13:37 | ED ---
General Adult HPI - General Chief complaint: Back Pain/Injury Stated complaint: lower right back pain Time Seen by Provider: 09/30/19 13:35 Source: patient Mode of arrival: wheelchair Limitations: no limitations - History of Present Illness Initial comments: Patient presents the ED with his son for evaluation. Patient states that he has had right lumbar back pain for the past week or so. Patient states that his back pain has become worse over the past 2 days. Patient states his pain radiates into his right buttock region. Patient states that he was provided with a prescription for hydrocodoneacetaminophen by his PCP. He states that he has been taking this medication since yesterday without much relief. Patient states that his pain is worse with position changes. Patient denies known trauma or injury, fever or chills, headache, focal numbness/weakness/neuro deficit, chest pain, dyspnea, dizziness, abdominal pain, nausea/vomiting, dysu [place] or urinary symptoms, incontinence/urinary retention, or any other symptoms or complaints. Patient states that he has an order for an MRI from his PCP, but he has yet to schedule it. - Related Data Home Medications Medication Instructions Recorded Confirmed Atorvastatin [Lipitor] 40 mg PO HS 11/14/16 09/30/19 Cyanocobalamin [Vitamin B-12] 500 mcg PO TID 11/14/16 09/30/19 Metoprolol Tartrate [Lopressor] 25 mg PO DAILY 11/14/16 09/30/19 Cyclobenzaprine [Flexeril] 5 mg PO TID PRN 09/03/19 09/30/19 Donepezil [Aricept] 10 mg PO HS 09/03/19 09/30/19 Fluticasone/Vilanterol [Breo 1 puff INHALATION RT-DAILY 09/03/19 09/30/19 Ellipta 200-25 Mcg INH] Gabapentin [Neurontin] 300 mg PO BID 09/03/19 09/30/19 Glimepiride [Amaryl] 2 mg PO BID 09/03/19 09/30/19 Isosorbide Mononitrate ER [Imdur] 60 mg PO DAILY 09/03/19 09/30/19 Multivitamins, Thera [Multivitamin 1 tab PO PC-LUNCH 09/03/19 09/30/19 (formulary)] Pantoprazole [Protonix] 40 mg PO DAILY 09/03/19 09/30/19 Potassium Chloride 10 meq PO DAILY 09/03/19 09/30/19 Valsartan [Diovan] 160 mg PO BID 09/03/19 09/30/19 hydroCHLOROthiazide 25 mg PO DAILY 09/03/19 09/30/19 Cinnamon Bark [Cinnamon] 1,000 mg PO DAILY 09/30/19 09/30/19 HYDROcodone/APAP 5-325MG [[place] 1 tab PO TID PRN 09/30/19 09/30/19 5-325] Lipo Flavonoid 2 tab PO TID-W/MEALS 09/30/19 09/30/19 Prasterone (Dhea)/Calcium Carb 1 tab PO DAILY 09/30/19 09/30/19 [Dhea 50 mg Tablet] Prevagen 1 tab PO DAILY 09/30/19 09/30/19 Ubidecarenone [Co Q-10] 100 mg PO DAILY 09/30/19 09/30/19 Previous Rx's Medication Instructions Recorded methylPREDNISolone Dose Pack 4 mg PO DIRECTED #21 package 09/30/19 [Medrol Dose Pack] Allergies Allergy/AdvReac Type Severity Reaction Status Date / Time shellfish derived [Shellfish] Allergy Severe Swelling Verified 09/30/19 14:09 iodine Allergy Unknown Verified 09/30/19 14:09 cabbage AdvReac Mild Nausea & Verified 09/30/19 14:09 Vomiting & Diarrhea Review of Systems ROS Statement: Those systems with pertinent positive or pertinent negative responses have been documented in the HPI. ROS Other: All systems not noted in ROS Statement are negative. Past Medical History Past Medical History: Cancer, Diabetes Mellitus, Hyperlipidemia, Hypertension, Myocardial Infarction ([place]), Prostate Disorder Additional Past Medical History / Comment(s): BORDERLINE DM, PROSTATE AND GALLBLADDER CA, LEFT EYE BLOOD CLOT Last Myocardial Infarction Date:: . History of Any Multi-Drug Resistant Organisms: None Reported Past Surgical History: Adenoidectomy, Cholecystectomy, Heart Catheterization With Stent, Prostate Surgery, Tonsillectomy Past Anesthesia/Blood Transfusion Reactions: No Reported Reaction Date of Last Stent Placement:: 2014 Past Psychological History: No Psychological Hx Reported Smoking Status: Never smoker Past Alcohol Use History: Occasional Past Drug Use History: None Reported General Exam Limitations: no limitations General appearance: alert, in no apparent distress Head exam: Present: atraumatic, normocephalic Eye exam: Present: normal appearance, EOMI ENT exam: Present: mucous membranes moist Neck exam: Absent: tenderness Respiratory exam: Present: normal lung sounds bilaterally. Absent: respiratory distress, wheezes, rales, rhonchi Cardiovascular Exam: Present: regular rate, normal rhythm, normal heart sounds, other (Normal radial pulses bilaterally) GI/Abdominal exam: Present: soft. Absent: distended, tenderness, guarding Extremities exam: Present: full ROM. Absent: tenderness, pedal edema, calf tenderness Back exam: Present: normal inspection, other (Mild right lumbar tenderness). Absent: CVA tenderness (R), CVA tenderness (L), vertebral tenderness Neurological exam: Present: alert, oriented X3, other (Patient has no evidence of lower extremity neurological deficit or saddle anesthesia on exam). Absent: motor sensory deficit Psychiatric exam: Present: normal affect, normal mood Skin exam: Present: warm, dry, intact, normal color Course Vital Signs 09/30/19 13:07 Temperature 98.1 F Pulse Rate 63 Respiratory 18 Rate Blood Pressure 172/85 O2 Sat by Pulse 96 Oximetry - Reevaluation(s) Reevaluation #1: 09/30/19 15:20 Patient states that his pain has improved with ED treatment. Patient denies d evelopment of any new symptoms while in the ED. Patient remains alert and breathing comfortably. Patient and son are aware of the patient's CT findings. Patient feels comfortable going home with his son at this time. Patient was counseled about lumbar back pain with radiculopathy. Patient was clearly explained return and follow-up instructions. Patient was instructed to follow up closely with his primary care provider. Patient was comfortable with this plan. Medical Decision Making - Medical Decision Making Patient's CT lumbar spine shows no evidence of acute fracture or acute process. Patient has no evidence of lower extremity neurological deficit or saddle anesthesia on exam. Patient denies incontinence or urinary retention. Patient has an order in place to obtain an MRI. I do not think that an emergent MRI is necessary at this time. I suspect that the patient's symptoms are likely secondary to lumbar back pain with radiculopathy. Patient feels comfortable going home with his son at this time. Will provide the patient with a prescription for a Medrol Dosepak in addition to the hydrocodoneacetaminophen that he has been prescribed by his primary care provider. - Radiology Data Radiology results: report reviewed (CT lumbar spine without contrast: No acute osseous abnormality; multilevel degenerative changes with moderate canal stenosis at L2-L3 and L4-L5, and varying degrees of neural foramina narrowing) Disposition Clinical Impression: Lumbar back pain with radiculopathy affecting right lower extremity Disposition: HOME SELF-CARE Condition: Stable Instructions (If sedation given, give patient instructions): Acute Low Back Pain (ED), Lumbar Radiculopathy (ED) Additional Instructions: Return to the ER immediately should you develop new or worsening pain, leg numbness or weakness, trouble controlling your bladder or bowels, a fever, shortness of breath, feeling dizzy or faint, vomiting, or new or worsening symptoms. Follow up closely with your primary care provider. Prescriptions: methylPREDNISolone Dose Pack [Medrol Dose Pack] 4 mg PO DIRECTED #21 package Is patient prescribed a controlled substance at d/c from ED?: No Referrals: Kristine Liu MD [Primary Care Provider] - 1-2 days Time of Disposition: 15:29
[2019-09-30] MEDS ORDERED: HYDROmorphone 1 MG/ML 1 ML SYRINGE IM STA (13:42)
--- NOTE | 2019-09-30 15:01 | CT ---
EXAMINATION TYPE: CT lumbar spine wo con DATE OF EXAM: 09/30/2019 2:57 PM COMPARISON: Lumbar radiograph 11/07/2018 HISTORY: Low back pain. Right lumbar back pain. CT DLP: 1122.6 mGycm Automated exposure control for dose reduction was used. Unenhanced CT of the lumbar spine was performed. Bone and soft tissue window settings are submitted as well as coronal and sagittal reconstructions. There is dextroscoliosis of the lumbar spine. Multilevel disc space narrowing, vacuum disc phenomenon , osteophytosis, and facet arthropathy contribute to varying degrees of neural foramina narrowing. Th ere is moderate canal stenosis at L2-3 and L4-5. No abdominal aortic aneurysm. No acute osseous abnormality. Vertebral body heights are maintained. IMPRESSION: 1. No acute osseous abnormality. 2. Multilevel degenerative changes with moderate canal stenosis at L2-L3 and L4-L5, and varying degr ees of neural foramina narrowing.
[2019-09-30 15:36] VITALS: BP 154/88; PULSE 71
== END 2019-09-30 15:36 | disposition home or self-care (01) ==
LOC: EC 12:56
DX: M54.16 Radiculopathy, lumbar region (principal); E78.5 Hyperlipidemia, unspecified; I10 Essential (primary) hypertension; E11.9 Type 2 diabetes mellitus without complications; I25.2 Old myocardial infarction; Z79.51 Long term (current) use of inhaled steroids; Z79.84 Long term (current) use of oral hypoglycemic drugs; Z79.899 Other long term (current) drug therapy; Z91.013 Allergy to seafood; Z91.048 Other nonmedicinal substance allergy status; Z91.018 Allergy to other foods; Z85.09 Personal history of malignant neoplasm of other digestive organs; Z85.46 Personal history of malignant neoplasm of prostate; Z95.5 Presence of coronary angioplasty implant and graft
CPT/HCPCS: 72131; 99283; 96372; J1170

== ENCOUNTER 2019-10-10 11:16 | Emergency (ER) | payer MEDICARE ==
[2019-10-10] MEDS ORDERED: HYDROcodone/APAP 7.5-325MG 1 EACH TAB PO ONE (11:41)
--- NOTE | 2019-10-10 12:15 | XR ---
EXAMINATION TYPE: XR Hip RT and AP Pelvis DATE OF EXAM: 10/10/2019 COMPARISON: NONE HISTORY: Pain TECHNIQUE: A single AP view of the pelvis is obtained. Two views of the right hip are obtained. FINDINGS: Severe degenerative change lower lumbar spine. SI joints symmetric. Spurring of along the u pper crests of the iliac bones. Surgical clips in the pelvis and there is arthropathy of the hips siena aterally with hypertrophic change of the acetabulum. IMPRESSION: 1. 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
--- NOTE | 2019-10-10 12:33 | ED ---
Back Pain [facility] - General Chief Complaint: Back Pain/Injury Stated Complaint: Lower Back Pain Time Seen by Provider: 10/10/19 11:30 Source: patient Limitations: no limitations - History of Present Illness Initial Comments: 74-year-old male presenting today for chief complaint of right-sided low back pain. Patient states she's had right lower sided back pain for the past 2 weeks. Patient states that it does not seem to be getting better. Patient denies any radiation of the leg he denies any loss of bowel bladder control denies urinary retention he denies IV drug use history of cancer he denies a weakness of the lower extremities he states he is able to ambulate without difficulty however this induces pain. He denies sensation loss of the legs. Patient denies new trauma or falls. Patient denies additional complaints. He appears well no distress. Denies urinary symptoms or hematuria denies history of kidney stones or upper back or flank pain - Related Data Home Medications Medication Instructions Recorded Confirmed Atorvastatin [Lipitor] 40 mg PO HS 11/14/16 09/30/19 Cyanocobalamin [Vitamin B-12] 500 mcg PO TID 11/14/16 09/30/19 Metoprolol Tartrate [Lopressor] 25 mg PO DAILY 11/14/16 09/30/19 Cyclobenzaprine [Flexeril] 5 mg PO TID PRN 09/03/19 09/30/19 Donepezil [Aricept] 10 mg PO HS 09/03/19 09/30/19 Fluticasone/Vilanterol [Breo 1 puff INHALATION RT-DAILY 09/03/19 09/30/19 Ellipta 200-25 Mcg INH] Gabapentin [Neurontin] 300 mg PO BID 09/03/19 09/30/19 Glimepiride [Amaryl] 2 mg PO BID 09/03/19 09/30/19 Isosorbide Mononitrate ER [Imdur] 60 mg PO DAILY 09/03/19 09/30/19 Multivitamins, Thera [Multivitamin 1 tab PO PC-LUNCH 09/03/19 09/30/19 (formulary)] Pantoprazole [Protonix] 40 mg PO DAILY 09/03/19 09/30/19 Potassium Chloride 10 meq PO DAILY 09/03/19 09/30/19 Valsartan [Diovan] 160 mg PO BID 09/03/19 09/30/19 hydroCHLOROthiazide 25 mg PO DAILY 09/03/19 09/30/19 Cinnamon Bark [Cinnamon] 1,000 mg PO DAILY 09/30/19 09/30/19 HYDROcodone/APAP 5-325MG [[place] 1 tab PO TID PRN 09/30/19 09/30/19 5-325] Lipo Flavonoid 2 tab PO TID-W/MEALS 09/30/19 09/30/19 Prasterone (Dhea)/Calcium Carb 1 tab PO DAILY 09/30/19 09/30/19 [Dhea 50 mg Tablet] Prevagen 1 tab PO DAILY 09/30/19 09/30/19 Ubidecarenone [Co Q-10] 100 mg PO DAILY 09/30/19 09/30/19 Previous Rx's Medication Instructions Recorded methylPREDNISolone Dose Pack 4 mg PO DIRECTED #21 package 09/30/19 [Medrol Dose Pack] Allergies Allergy/AdvReac Type Severity Reaction Status Date / Time shellfish derived [Shellfish] Allergy Severe Swelling Verified 09/30/19 14:09 iodine Allergy Unknown Verified 09/30/19 14:09 cabbage AdvReac Mild Nausea & Verified 09/30/19 14:09 Vomiting & Diarrhea Review of Systems ROS Statement: Those systems with pertinent positive or pertinent negative responses have been documented in the HPI. ROS Other: All systems not noted in ROS Statement are negative. Past Medical History Past Medical History: Cancer, Diabetes Mellitus, Hyperlipidemia, Hypertension, Myocardial Infarction ([place]), Prostate Disorder Additional Past Medical History / Comment(s): BORDERLINE DM, PROSTATE AND GALLBLADDER CA, LEFT EYE BLOOD CLOT Last Myocardial Infarction Date:: . History of Any Multi-Drug Resistant Organisms: None Reported Past Surgical History: Adenoidectomy, Cholecystectomy, Heart Catheterization With Stent, Prostate Surgery, Tonsillectomy Past Anesthesia/Blood Transfusion Reactions: No Reported Reaction Date of Last Stent Placement:: 2014 Past Psychological History: No Psychological Hx Reported Smoking Status: Never smoker Past Alcohol Use History: Occasional Past Drug Use History: None Reported General Exam - General Exam Comments Initial Comments: General: The patient is awake and alert, in no distress, and does not appear acutely ill. Eye: +3 mm pupils are equal, round and reactive to light, extra-ocular movements are intact. No nystagmus. There is normal conjunctiva bilaterally. No signs of icterus. Ears, nose, mouth and throat: There are moist mucous membranes and no oral lesions. Neck: The neck is supple, there is no tenderness or JVD. Cardiovascular: There is a regular rate and rhythm. No murmur, rub or gallop is appreciated. Respiratory: Lungs are clear to auscultation, respirations are non-labored, breath sounds are equal. No wheezes, stridor, rales, or rhonchi. Gastrointestinal: Soft, non-distended, non-tender abdomen without masses or organomegaly noted. There is no rebound or guarding present. Musculoskeletal: Normal inspection of the cervical thoracic or lumbar spine there is right sided paraspinal tenderness of the lumbar spine there is no midline tenderness. Full range motion of the lower Achilles bilaterally. Strength full sensation clean the saddle region. Patient weight bears and ambulate without difficulty. DP pulses equal bilaterally 2+. There is some tenderness palpation over the iliac crest in the right Neurological: A&O x 3. CN II-XII intact grossly, There are no obvious motor or sensory deficits. Coordination appears grossly intact. Speech is normal. Skin: Skin is warm and dry and no rashes or lesions are noted. Psychiatric: Cooperative, appropriate mood & affect, normal judgment. Limitations: no limitations Course Vital Signs 10/10/19 10/10/19 11:22 12:43 Temperature 98.8 F 98.3 F Pulse Rate 67 63 Respiratory 20 18 Rate Blood Pressure 167/78 162/89 O2 Sat by Pulse 96 97 Oximetry Medical Decision Making - Medical Decision Making 74-year-old male presenting for right low back pain upper or hip pain. Patient had recent CT of the lumbar spine was revealed some spinal stenosis no other significant findings. Patient denies any new falls or trauma. Patient had x- ray of the hip which did reveal a possible femoral acetabular impingement syndrome. This could be cause the patient's pain patient was recently prescribed by Dr. Noe Steinberg prescription upon [facility] review. Patient states that he did not know he has the prescription and hasnt picked it up Patietn states he presented for pain control. Patient was suggested to go to PT by PCP per friend. Patient has no additional comlaints. He appears neurovascularly intact. Ambulatory without difficulty at this time feel patient is stable for discharge with outpatient primary and orthopedic follow-up Disposition Clinical Impression: Low back pain, Right hip pain, Femoral acetabular impingement Disposition: HOME SELF-CARE Condition: Good Instructions (If sedation given, give patient instructions): Acute Low Back Pain (ED) Additional Instructions: Please use medication as discussed. Please follow-up with family doctor in the next 2 days of symptoms have not improved. Please return to emergency room if the symptoms increase or worsen or for any other concerns. Is patient prescribed a controlled substance at d/c from ED?: No Referrals: Kristine Liu MD [Primary Care Provider] - 1-2 days Kapil Bunn DO [Doctor of Osteopathic Medicine] - 1-2 days Time of Disposition: 12:33
[2019-10-10 12:45] VITALS: BP 162/89; PULSE 63; RESP 18; TEMP 98.3
== END 2019-10-10 12:45 | disposition home or self-care (01) ==
LOC: EC 11:16
DX: M25.851 Other specified joint disorders, right hip (principal); M48.061 Spinal stenosis, lumbar region without neurogenic claudication; M54.5 Low back pain; M25.551 Pain in right hip; E11.9 Type 2 diabetes mellitus without complications; E78.5 Hyperlipidemia, unspecified; I10 Essential (primary) hypertension; I25.2 Old myocardial infarction; Z91.013 Allergy to seafood; Z91.048 Other nonmedicinal substance allergy status; Z91.018 Allergy to other foods; Z85.46 Personal history of malignant neoplasm of prostate; Z85.09 Personal history of malignant neoplasm of other digestive organs; Z79.84 Long term (current) use of oral hypoglycemic drugs; Z79.899 Other long term (current) drug therapy
CPT/HCPCS: 73502; 99283

== ENCOUNTER 2019-10-12 03:55 | Observation (INO) | payer MEDICARE ==
[2019-10-12 04:25] LABS: Basophils % (A) 0 %; Eosinophils # (A) 0.3 k/uL (0-0.7); Eosinophils % (A) 4 %; HCT 40.6 % (39.0-53.0); HGB 13.7 gm/dL (13.0-17.5); Lymphocytes # (A) 2.1 k/uL (1.0-4.8); Lymphocytes % (A) 25 %; MCH 30.8 pg (25.0-35.0); MCHC 33.7 g/dL (31.0-37.0); MCV 91.6 fL (80.0-100.0); Mean Platelet Volume 6.7; Monocytes # (A) 0.5 k/uL (0-1.0); Monocytes % (A) 5 %; Neutrophils # (A) 5.1 k/uL (1.3-7.7); Neutrophils % (A) 62 %; Platelet Count 236 k/uL (150-450); RBC 4.43 m/uL (4.30-5.90); RDW 12.8 % (11.5-15.5); WBC 8.3 k/uL (3.8-10.6)
[2019-10-12 04:36] LABS: Albumin 3.5 g/dL (3.5-5.0); Calcium 9.2 mg/dL (8.4-10.2); Potassium 3.6 mmol/L (3.5-5.1); Total Bilirubin 0.7 mg/dL (0.2-1.3); Total Protein 5.8 g/dL (6.3-8.2)
[2019-10-12] MEDS ORDERED: MORPHINE SULFATE 4 MG/ML SYRINGE IVP STA (05:45)
--- NOTE | 2019-10-12 05:45 | ED ---
Back Pain HPI - General Chief Complaint: Back Pain/Injury Stated Complaint: Back Pain Time Seen by Provider: 10/12/19 04:00 Source: patient, EMS Limitations: no limitations - History of Present Illness Initial Comments: Souleymane is a very pleasant 74-year-old gentleman who presents to the emergency department today for the third time in 10 days for reevaluation of back pain. Patient has been following with his primary care physician for over a month for this back pain. He's been seen in the ER he's had CT scans and x-rays. Pain is in the lumbar spine occasionally radiating down the right leg with some sciatica. He has no weakness or numbness in the legs. No saddle anesthesia. No Associated fevers. The patient is been taking home narcotics with no improvement in his pain. Tonight he called EMS for transport to the hospital due to intolerable pain and inability to sleep. - Related Data Home Medications Medication Instructions Recorded Confirmed Atorvastatin [Lipitor] 40 mg PO HS 11/14/16 09/30/19 Cyanocobalamin [Vitamin B-12] 500 mcg PO TID 11/14/16 09/30/19 Metoprolol Tartrate [Lopressor] 25 mg PO DAILY 11/14/16 09/30/19 Cyclobenzaprine [Flexeril] 5 mg PO TID PRN 09/03/19 09/30/19 Donepezil [Aricept] 10 mg PO HS 09/03/19 09/30/19 Fluticasone/Vilanterol [Breo 1 puff INHALATION RT-DAILY 09/03/19 09/30/19 Ellipta 200-25 Mcg INH] Gabapentin [Neurontin] 300 mg PO BID 09/03/19 09/30/19 Glimepiride [Amaryl] 2 mg PO BID 09/03/19 09/30/19 Isosorbide Mononitrate ER [Imdur] 60 mg PO DAILY 09/03/19 09/30/19 Pantoprazole [Protonix] 40 mg PO DAILY 09/03/19 09/30/19 Potassium Chloride 10 meq PO DAILY 09/03/19 09/30/19 Valsartan [Diovan] 160 mg PO BID 09/03/19 09/30/19 hydroCHLOROthiazide 25 mg PO DAILY 09/03/19 09/30/19 Cinnamon Bark [Cinnamon] 1,000 mg PO DAILY 09/30/19 09/30/19 HYDROcodone/APAP 5-325MG [[place] 1 tab PO TID PRN 09/30/19 09/30/19 5-325] Lipo Flavonoid 2 tab PO TID-W/MEALS 09/30/19 09/30/19 Prasterone (Dhea)/Calcium Carb 1 tab PO DAILY 09/30/19 09/30/19 [Dhea 50 mg Tablet] Prevagen 1 tab PO DAILY 09/30/19 09/30/19 Ubidecarenone [Co Q-10] 100 mg PO DAILY 09/30/19 09/30/19 [place] 1 tab PO DAILY 10/12/19 10/12/19 Nabumetone [Relafen] 750 mg PO DAILY PRN 10/12/19 10/12/19 Allergies Allergy/AdvReac Type Severity Reaction Status Date / Time shellfish derived [Shellfish] Allergy Severe Swelling Verified 10/12/19 07:39 iodine Allergy Unknown Verified 10/12/19 07:39 cabbage AdvReac Mild Nausea & Verified 10/12/19 07:39 Vomiting & Diarrhea Review of Systems ROS Statement: Those systems with pertinent positive or pertinent negative responses have been documented in the HPI. ROS Other: All systems not noted in ROS Statement are negative. Past Medical History Past Medical History: Cancer, Diabetes Mellitus, Hyperlipidemia, Hypertension, Myocardial Infarction ([place]), Prostate Disorder Additional Past Medical History / Comment(s): BORDERLINE DM, PROSTATE AND GALLBL ADDER CA, LEFT EYE BLOOD CLOT Last Myocardial Infarction Date:: . History of Any Multi-Drug Resistant Organisms: None Reported Past Surgical History: Adenoidectomy, Cholecystectomy, Heart Catheterization With Stent, Prostate Surgery, Tonsillectomy Past Anesthesia/Blood Transfusion Reactions: No Reported Reaction Date of Last Stent Placement:: 2014 Past Psychological History: No Psychological Hx Reported Smoking Status: Never smoker Past Alcohol Use History: Occasional Past Drug Use History: None Reported General Exam - General Exam Comments Initial Comments: Physical Exam GENERAL: Patient is well-developed and well-nourished. Patient is nontoxic and well-hydrated and is in no distress. HENT: Normocephalic, Atraumatic. EYES: PERRL, EOMI PULMONARY: Unlabored respirations. CARDIOVASCULAR: RRR Warm and well perfused extremities ABDOMEN: Non-distended SKIN: No rashes or bruising : Deferred NEUROLOGIC: Alert and oriented Normal speech Normal strength and sensation bilateral lower extremity MUSCULOSKELETAL: Moving all extremities with no apparent injury PSYCHIATRIC: No SI/HI Limitations: no limitations Course Vital Signs 10/12/19 10/12/19 10/12/19 03:58 05:52 06:00 Temperature 98.2 F Pulse Rate 76 68 Respiratory 19 17 Rate Blood Pressure 191/100 134/72 134/72 O2 Sat by Pulse 94 L 97 96 Oximetry 10/12/19 10/12/19 06:30 07:26 Temperature 98 F Pulse Rate 63 70 Respiratory 18 18 Rate Blood Pressure 140/78 148/79 O2 Sat by Pulse 96 97 Oximetry Medical Decision Making - Medical Decision Making The patient was seen and evaluated, history was obtained from the patient review of medical record Patient with no signs of cauda equina however has intractable back pain he is on oral narcotics he received IV narcotics with no improvement Patient will be admitted for pain management and further evaluation and sign patient care was discussed with his primary care physician who states she's been having trouble ordering an outpatient MRI due to insurance issues and agrees with plan for admission, MRI consult to spine surgery and pain management - Lab Data Result diagrams: 10/12/19 04:16 10/12/19 04:16 Lab Results 10/12/19 10/12/19 Range/Units 04:16 04:16 WBC 8.3 (3.8-10.6) k/uL RBC 4.43 (4.30-5.90) m/uL Hgb 13.7 (13.0-17.5) gm/dL Hct 40.6 (39.0-53.0) % MCV 91.6 (80.0-100.0) fL MCH 30.8 (25.0-35.0) pg MCHC 33.7 (31.0-37.0) g/dL RDW 12.8 (11.5-15.5) % Plt Count 236 (150-450) k/uL Neutrophils % 62 % Lymphocytes % 25 % Monocytes % 5 % Eosinophils % 4 % Basophils % 0 % Neutrophils # 5.1 (1.3-7.7) k/uL Lymphocytes # 2.1 (1.0-4.8) k/uL Monocytes # 0.5 (0-1.0) k/uL Eosinophils # 0.3 (0-0.7) k/uL Basophils # 0.0 (0-0.2) k/uL Sodium 135 L (137-145) mmol/L Potassium 3.6 (3.5-5.1) mmol/L Chloride 102 (98-107) mmol/L Carbon Dioxide 26 (22-30) mmol/L Anion Gap 7 mmol/L BUN 16 (9-20) mg/dL Creatinine 1.10 (0.66-1.25) mg/dL Est GFR (CKD-EPI)AfAm 76 (>60 ml/min/1.73 sqM) Est GFR (CKD-EPI)NonAf 66 (>60 ml/min/1.73 sqM) Glucose 83 (74-99) mg/dL Calcium 9.2 (8.4-10.2) mg/dL Total Bilirubin 0.7 (0.2-1.3) mg/dL AST 33 (17-59) U/L ALT 37 (4-49) U/L Alkaline Phosphatase 77 (38-126) U/L Total Protein 5.8 L (6.3-8.2) g/dL Albumin 3.5 (3.5-5.0) g/dL Disposition Clinical Impression: Sciatica, Lumbar back pain with radiculopathy affecting right lower extremity Disposition: ADMITTED IP TO THIS [facility] Condition: Stable Referrals: Kristine Liu MD [Primary Care Provider] - 1-2 days
[2019-10-12] MEDS ORDERED: SODIUM CHLORIDE 0.9% 1,000 ML IV ONE (06:00)
[2019-10-12] MEDS ORDERED: MORPHINE SULFATE 4 MG/ML SYRINGE IV PRN (07:15)
[2019-10-12] MEDS ORDERED: NALOXONE 0.4 MG/ML 1 ML VIAL IV PRN (07:15)
[2019-10-12] MEDS ORDERED: predniSONE 20 MG TAB PO STA (07:41)
[2019-10-12 08:07] LABS: Appearance,Urine Clear (Clear); Bilirubin,Urine Negative (Negative); Blood,Urine Negative (Negative); Color,Urine Yellow; Glucose,Urine (UA) Negative (Negative); Ketones,Urine Negative (Negative); Leukocyte Esterase,Urine Negative (Negative); Nitrite,Urine Negative (Negative); Protein,Urine Negative (Negative); Specific Gravity,Urine 1.019 (1.001-1.035); Urobilinogen,Urine <2.0 mg/dL (<2.0)
[2019-10-12] MEDS ORDERED: CYCLOBENZAPRINE 5 MG TAB PO PRN (08:57)
[2019-10-12] MEDS ORDERED: HYDROcodone/APAP 5-325MG 1 EACH TAB PO PRN (08:57)
[2019-10-12] MEDS ORDERED: HYDROmorphone 1 MG/ML 1 ML SYRINGE IVP PRN (08:58)
--- NOTE | 2019-10-12 09:24 | P.CNOR ---
History of Present Illness - [facility] Consult date: 10/12/19 Requesting physician: Nayeli Schwab Consult reason: low back pain (Intractable low back pain), other (Right lower extremity radiculopathy) History of present illness: Patient is a very pleasant 74-year-old male who is seen and examined at bedside for further evaluation of intractable low back pain. Patient states he has been experiencing increased low back pain over the past couple months without injuries. He has been following with his primary care provider in the [facility] setting without any significant control of his symptoms. He states he has tried narcotic pain medication as well as a steroid taper without significant improvement. He states his most significant pain is low back pain with pain radiating into the right buttock, down the posterior thigh and calf, and over the anterior jorgensen the top of the right foot. He denies any left lower extremity radiculopathy. He denies any lower extremity weakness bilaterally. He has been to the hospital 3 times over the past 10 days due to his symptoms. He was admitted this morning with consultations for orthopedic spine and pain management. An MRI of the lumbar spine has been ordered. He previously had CT imaging of the lumbar spine. He is seen at the bedside today by Dr. Villalobos in medicine. Patient has a past medical history which includes diabetes mellitus, hyperlipidemia, hypertension, myocardial infarction, cancer, and prostate surgery. Past Medical History Past Medical History: Cancer, Diabetes Mellitus, Hyperlipidemia, Hypertension, Myocardial Infarction ([place]), Prostate Disorder Additional Past Medical History / Comment(s): BORDERLINE DM, PROSTATE AND GALLBLADDER CA, LEFT EYE BLOOD CLOT Last Myocardial Infarction Date:: . History of Any Multi-Drug Resistant Organisms: None Reported Past Surgical History: Adenoidectomy, Cholecystectomy, Heart Catheterization With Stent, Prostate Surgery, Tonsillectomy Past Anesthesia/Blood Transfusion Reactions: No Reported Reaction Date of Last Stent Placement:: 2014 Past Psychological History: No Psychological Hx Reported Smoking Status: Never smoker Past Alcohol Use History: Occasional Past Drug Use History: None Reported Medications and Allergies Home Medications Medication Instructions Recorded Confirmed Type Atorvastatin [Lipitor] 40 mg PO HS 11/14/16 10/12/19 History Cyanocobalamin [Vitamin B-12] 500 mcg PO TID 11/14/16 10/12/19 History Metoprolol Tartrate [Lopressor] 25 mg PO DAILY 11/14/16 10/12/19 History Cyclobenzaprine [Flexeril] 5 mg PO TID PRN 09/03/19 10/12/19 History Donepezil [Aricept] 10 mg PO HS 09/03/19 10/12/19 History Fluticasone/Vilanterol [Breo 1 puff INHALATION RT-DAILY 09/03/19 10/12/19 History Ellipta 200-25 Mcg INH] Gabapentin [Neurontin] 300 mg PO BID@1200,2100 09/03/19 10/12/19 History Glimepiride [Amaryl] 2 mg PO BID 09/03/19 10/12/19 History Isosorbide Mononitrate ER [Imdur] 60 mg PO DAILY 09/03/19 10/12/19 History Pantoprazole [Protonix] 40 mg PO DAILY@1200 09/03/19 10/12/19 History Potassium Chloride 10 meq PO DAILY 09/03/19 10/12/19 History Valsartan [Diovan] 160 mg PO BID 09/03/19 10/12/19 History hydroCHLOROthiazide 25 mg PO DAILY 09/03/19 10/12/19 History Cinnamon Bark [Cinnamon] 1,000 mg PO DAILY 09/30/19 10/12/19 History HYDROcodone/APAP 5-325MG [[place] 1 tab PO TID PRN 09/30/19 10/12/19 History 5-325] Lipo Flavonoid 2 tab PO TID-W/MEALS 09/30/19 10/12/19 History Prasterone (Dhea)/Calcium Carb 1 tab PO DAILY 09/30/19 10/12/19 History [Dhea 50 mg Tablet] Prevagen 1 tab PO DAILY 09/30/19 10/12/19 History Ubidecarenone [Co Q-10] 100 mg PO DAILY 09/30/19 10/12/19 History Alive 1 tab PO DAILY 10/12/19 10/12/19 History Fluticasone Nasal [place] [Flonase 1 spr EA NOSTRIL BID 10/12/19 10/12/19 History Nasal [place]] Nabumetone [Relafen] 750 mg PO DAILY PRN 10/12/19 10/12/19 History Allergies Allergy/AdvReac Type Severity Reaction Status Date / Time shellfish derived [Shellfish] Allergy Severe Swelling Verified 10/12/19 07:39 iodine Allergy Unknown Verified 10/12/19 07:39 cabbage AdvReac Mild Nausea & Verified 10/12/19 07:39 Vomiting & Diarrhea Physical Examination Physical exam: Patient is awake, alert, and oriented 3 Vital signs stable Good chest excursion with deep inspiration and expiration Examination of lumbar spine reveals skin is intact with no abrasions, lacerations, or bruises; no erythema, purulence or signs of infection Evidence of a 2.5 cm x 2.5 cm square area of skin changed it looks like scar formation of the upper lumbar spine over the midline/left paraspinals Dorsiflexion, plantarflexion, and extensor hallucis longus positive sustained bilaterally Lower extremity strength 5/5 bilaterally except for some difficulty with hip flexion on the right Patient is able to move legs independently in the bed without significant difficulty but is slow with hip flexion on the right Patellar reflex 2+ bilaterally No lower extremity hyperreflexia bilaterally Straight leg test negative bilateral lower extremities Negative Lasegue's test bilaterally No signs or symptoms of DVT; no calf pain No pain with internal and external rotation of the hips bilaterally Neurovascularly intact Results Pertinent studies: X-ray of the right hip and pelvis taken on 10/10/2019: Degenerative changes of the lower lumbar spine cervical sacroiliac joint spacing appears adequately ma intained; hypertrophy at the acetabulum bilaterally; hip joint spacing appears to be fairly well maintained bilaterally no evidence of fracture dislocation of the pelvis; surgical clips in the pelvis CT lumbar spine taken on 09/30/2019: Degenerative scoliosis; multilevel degene rative disc disease, osteophytic spurring, and facet arthropathy resulting in very degrees of neural foraminal narrowing; L2-3 moderate spinal canal stenosis cervical L4-5 asymmetric degenerative disc disease and moderate spinal canal stenosis; no acute osseous abnormality; no evidence of to body compression fracture - Labs Labs: Abnormal Lab Results - Last 24 Hours (Table) 10/12/19 Range/Units 04:16 Sodium 135 L (137-145) mmol/L Total Protein 5.8 L (6.3-8.2) g/dL H & H 10/12/19 Range/Units 04:16 Hgb 13.7 (13.0-17.5) gm/dL Hct 40.6 (39.0-53.0) % Result Diagrams: 10/12/19 04:16 10/12/19 04:16 Assessment and Plan Assessment: Assessment: Intractable low back pain Right lower extremity radiculopathy Degenerative scoliosis L2-3 and L4-5 moderate spinal canal stenosis Lumbar multilevel degenerative disc disease Lumbar osteophytic spurring Diabetes mellitus Hypertension Hyperlipidemia History of cancer History of prostate surgery History of myocardial infarction (1) Intractable low back pain Current Visit: Yes Status: Acute Code(s): M54.5 - LOW BACK PAIN SNOMED Code(s): 55191126706043191 (2) Degenerative scoliosis in adult patient Current Visit: Yes Status: Acute Code(s): M41.50 - OTHER SECONDARY SCOLIOSIS, SITE UNSPECIFIED SNOMED Code(s): 877322475 (3) Lumbar spinal stenosis Current Visit: Yes Status: Acute Code(s): M48.061 - SPINAL STENOSIS, LUMBAR REGION WITHOUT NEUROGENIC GABI SNOMED Code(s): 97777951 (4) Lumbar facet arthropathy Current Visit: Yes Status: Acute Code(s): M47.816 - SPONDYLOSIS W/O MY ELOPATHY OR RADICULOPATHY, LUMBAR REGION SNOMED Code(s): 416321630 (5) Osteophyte Current Visit: Yes Status: Acute Code(s): M25.70 - OSTEOPHYTE, UNSPECIFIED JOINT SNOMED Code(s): 464076411744374 (6) Diabetes mellitus Current Visit: Yes Status: Acute Code(s): E11.9 - TYPE 2 DIABETES MELLITUS WITHOUT COMPLICATIONS SNOMED Code(s): 26543295 (7) Hypertension Current Visit: Yes Status: Acute Code(s): I10 - ESSENTIAL (PRIMARY) HYPE RTENSION SNOMED Code(s): 78866793 (8) Hyperlipidemia Current Visit: Yes Status: Acute Code(s): E78.5 - HYPERLIPIDEMIA, UNSPECIFIED SNOMED Code(s): 11846531 (9) History of myocardial infarction Current Visit: Yes Status: Acute Code(s): I25.2 - OLD MYOCARDIAL INFARCTION SNOMED Code(s): 659777156 (10) History of cancer Current Visit: Yes Status: Acute Code(s): Z85.9 - PERSONAL HISTORY OF MALIGNANT NEOPLASM, UNSPECIFIED SNOMED Code(s): 611271560 (11) History of prostate surgery Current Visit: Yes Status: Acute Code(s): Z98.890 - OTHER SPECIFIED POSTPROCEDURAL STATES SNOMED Code(s): 085766239 (12) Lumbar back pain with radiculopathy affecting right lower extremity Current Visit: Yes Status: Acute Code(s): M54.16 - RADICULOPATHY, LUMBAR REGION SNOMED Code(s): 389086466 Plan: Plan: 1. Patient has been experiencing ongoing low back pain and right lower extremity radiculopathy of the past 2 months without injury. He has been working with his primary care provider in the outpatient setting without significant control of his symptoms. He has presented to the emergency department 3 times in the past [address] imaging lumbar spine does show significant degenerative changes at his lumbar spine with multilevel spinal stenosis. Patient has been seen and examined at the bedside by medicine who states they are planning to start the patient on steroid medication. Patient is also scheduled to have an MRI of the lumbar spine performed today. Consultation has been placed with pain management. After further discussion with the patient, we discussed we will currently plan to continue with conservative treatment. We will see if he is able to have improvement of his symptoms with steroid medication during his admittance to the hospital. He is currently waiting for evaluation by pain management and would be interested in pain management services. We'll also plan to review his MRI and follow-up with those MRI results to discuss possible treatment options were he to fail conservative treatment. Patient states he would like to work through conservative treatment options first prior to the possibility of surgical intervention which we also feels a good plan of care. 2. Continue pain control medications as prescribed 3. Patient continue be seen in exam by Dr. Villalobos in medicine for all his medical diagnoses including intractable low back pain, right lower extremity radiculopathy, hypertension, hyperlipidemia, and diabetes mellitus 4. Patient may currently waiting for consultation with pain management Time with Patient: Greater than 30 (Including obtaining history, physical examination, reviewing of imaging, and dictation.)
[2019-10-12] MEDS: hydroCHLOROthiazide 25 MG TAB PO SCH (09:36)
[2019-10-12] MEDS: METOPROLOL TARTRATE 25 MG TAB PO SCH (09:37)
[2019-10-12] MEDS: ISOSORBIDE MONONITRATE ER 60 MG TAB.ER.24H PO SCH (09:37)
[2019-10-12] MEDS: POTASSIUM CHLORIDE ER 10 MEQ TAB.ER.PRT PO SCH (09:37)
[2019-10-12] MEDS: CYANOCOBALAMIN 500 MCG TAB PO SCH ×3 (09:37→21:06)
[2019-10-12] MEDS: dexAMETHasone 4 MG TAB PO SCH ×4 (09:37→21:06)
[2019-10-12] MEDS: FLUTICASONE 50MCG/SPRAY NASAL 16GM EA NOSTRIL SCH ×2 (09:38→21:05)
[2019-10-12] MEDS: GLIMEPIRIDE 2 MG TAB PO SCH ×2 (09:38→21:06)
--- NOTE | 2019-10-12 11:31 | P.HPIM ---
History of Present Illness H&P Date: 10/12/19 Chief Complaint: Pain History of Present Illness This is a 74-year-old male patient of Dr. Liu with past medical history of hypertension, hyperlipidemia, non-ST elevated myocardial infarction in 2017 status post stent to the mid circumflex, diabetes mellitus type 2 with diabetic neuropathy, dementia, prostate cancer status post resection, gastroesophageal reflux disease. Patient has had low back pain on the right lumbar area for the last couple months without any known injury. He states he got out of bed and the pain was there. He denies having any falls or any heavy lifting. He has been on a steroid taper and [place] without improvement he has had no lower extremity weakness. He has been to the emergency center twice recently for the same concerns. Initially presented on September 29 and CAT scan of the lumbar spine without contrast showed no acute osseous abnormality. Multilevel degenerative changes with moderate canal stenosis at L2-L3 and L4-L5 endearing degrees of neural foraminal narrowing. Patient was discharged home from the emergency center placed on a Medrol Dosepak. He returned on October 09 and was recommended to cloth picker the prescription for [place] which had been sent to his pharmacy by Dr. Liu and then follow-up with orthopedic and PCP. He returned on October 11 as pain became so severe and intolerable and it unable to sleep. He was found to be afebrile, initial blood pressure 191/100, heart rate 76, pulse ox 94% on room air. Blood work was unremarkable. Patient was given IV morphine and continued to have pain, placed on the observation unit and consult requested with pain management and orthopedic spine. MRI of the lumbar spine has been ordered. Review of Systems Constitutional: No fever, no chills, no night sweats. No weight change. No weakness, fatigue or lethargy. No daytime sleepiness. EENT: No headache. No blurred vision or double vision, no loss of vision. No loss of Hearing, no ringing in the ears, no dizziness. No nasal drainage or congestion. No epistaxis. No sore throat. Lungs: No shortness of breath, cough, no sputum production. No wheezing. Cardiovascular: No chest pain, no lower extremity edema. No palpitations. No paroxysmal nocturnal dyspnea. No orthopnea. No lightheadedness or dizziness. No syncopal episodes. Abdominal: No abdominal pain. No nausea, vomiting. No diarrhea. No constipation. No bloody or tarry stools.. No loss of appetite. Genitourinary: No dysuria, increased frequency, urgency. No urinary retention. Musculoskeletal: No myalgias. No muscle weakness, reports gait dysfunction, no frequent falls. Reports back pain. No neck pain. Integumentary: No wounds, no lesions. No rash or pruritus. No unusual bruising. No change in hair or nails. Neurologic: No aphasia. No facial droop. No change in mentation. No head injury. No headache. No paralysis. No paresthesia. Psychiatric: No depression. No anxiety. No mood swings. Endocrine: No abnormal blood sugars. No weight change. No excessive sweating or thirst. No cold intolerance. Physical Examination Gen: This is a 74-year-old male. He is sitting up in bed and appears to be comfortable and in no acute distress. HEENT: Head is atraumatic, normocephalic. Pupils equal, round. Sclerae is anicteric. NECK: Supple. No JVD. No lymphadenopathy. No thyromegaly. LUNGS: Clear to auscultation. No wheezes or rhonchi. No intercostal retractions. HEART: Regular rate and rhythm. Systolic murmur. ABDOMEN: Soft. Bowel sounds are present. No masses. No tenderness. BACK: Tenderness to the right lumbar area. EXTREMITIES: No pedal edema. No calf tenderness. NEUROLOGICAL: Patient is awake, alert and oriented x3. Cranial nerves 2 through 12 are grossly intact. Assessment and Plan 1. Intractable low back pain with right lower extremity radiculopathy secondary to L2/3 and L4/5 moderate spinal canal stenosis and multilevel degenerative disc disease. Patient placed on the observation unit, consult in place with orthopedic spine and pain management. MRI of the lumbar spine. Patient started on dexamethasone 4 mg 4 times daily and morphine 4 mg IV every 4 hours as needed, continue [place] 5/325 mg 13 times daily as needed, Flexeril 5 mg 3 times daily as needed. 2. Hypertension. Continue hydrochlorothiazide 25 mg daily, Imdur 60 mg daily, Lopressor 25 mg daily. 3. Hyperlipidemia. Continue Lipitor 40 mg at bedtime. 4. History of non-ST elevated myocardial infarction and stenting of the mid circumflex. Continue Lopressor, Imdur, Lipitor. 5. Diabetes mellitus type 2. Continue glimepiride 2 mg twice daily and NovoLog scale before meals and at bedtime. 6. Diabetic neuropathy. Continue gabapentin 3 mg twice daily. 7. Dementia. Continue Aricept 10 mg at bedtime. 8. History of prostate cancer status post resection, stable. 9. Gastroesophageal reflux disease and GI prophylaxis. Protonix. 10. DVT prophylaxis. Heparin subcu to start in the morning. 11. COVID-19 testing. Patient placed on the observation unit. Discharge plan: Most likely return home. PT and OT will be added. Impression and plan of care have been directed as dictated by the signing physician. Patricia Torres nurse practitioner acting as scribe for signing physician. Past Medical History Past Medical History: Cancer, Diabetes Mellitus, Hyperlipidemia, Hypertension, Myocardial Infarction ([place]), Prostate Disorder Additional Past Medical History / Comment(s): PROSTATE AND GALLBLADDER CA, LEFT EYE BLOOD CLOT Last Myocardial Infarction Date:: . History of Any Multi-Drug Resistant Organisms: None Reported Past Surgical History: Adenoidectomy, Cholecystectomy, Heart Catheterization With Stent, Prostate Surgery, Tonsillectomy Past Anesthesia/Blood Transfusion Reactions: No Reported Reaction Date of Last Stent Placement:: 2014 Past Psychological History: No Psychological Hx Reported Smoking Status: Never smoker Past Alcohol Use History: Occasional Additional Past Alcohol Use History / Comment(s): Patient smoked for about 10 years and quit 40 years ago. He worked in the [employer] department in the past. He is a . He drinks 1 shot of albert each year on special occasions. Past Drug Use History: None Reported - Past Family History Father Family Medical History: No Reported History Additional Family Medical History / Comment(s): Father was healthy. He lived until 83 yrs. Mother Family Medical History: No Reported History Additional Family Medical History / Comment(s): Mother was healthy. She live until 89yrs. Brother(s) Additional Family Medical History / Comment(s): The patient has one brother and he is still living. He has psychiatric issues from time in the [employer]. Sister(s) Additional Family Medical History / Comment(s): Patient has 1 sister and she is alive with no major medical problems. Son(s) Additional Family Medical History / Comment(s): Patient has one son with no major medical problems. He does not have any daughters. Medications and Allergies Home Medications Medication Instructions Recorded Confirmed Type Atorvastatin [Lipitor] 40 mg PO HS 11/14/16 10/12/19 History Cyanocobalamin [Vitamin B-12] 500 mcg PO TID 11/14/16 10/12/19 History Metoprolol Tartrate [Lopressor] 25 mg PO DAILY 11/14/16 10/12/19 History Cyclobenzaprine [Flexeril] 5 mg PO TID PRN 09/03/19 10/12/19 History Donepezil [Aricept] 10 mg PO HS 09/03/19 10/12/19 History Fluticasone/Vilanterol [Breo 1 puff INHALATION RT-DAILY 09/03/19 10/12/19 History Ellipta 200-25 Mcg INH] Gabapentin [Neurontin] 300 mg PO BID@1200,2100 09/03/19 10/12/19 History Glimepiride [Amaryl] 2 mg PO BID 09/03/19 10/12/19 History Isosorbide Mononitrate ER [Imdur] 60 mg PO DAILY 09/03/19 10/12/19 History Pantoprazole [Protonix] 40 mg PO DAILY@1200 09/03/19 10/12/19 History Potassium Chloride 10 meq PO DAILY 09/03/19 10/12/19 History Valsartan [Diovan] 160 mg PO BID 09/03/19 10/12/19 History hydroCHLOROthiazide 25 mg PO DAILY 09/03/19 10/12/19 History Cinnamon Bark [Cinnamon] 1,000 mg PO DAILY 09/30/19 10/12/19 History HYDROcodone/APAP 5-325MG [[place] 1 tab PO TID PRN 09/30/19 10/12/19 History 5-325] Lipo Flavonoid 2 tab PO TID-W/MEALS 09/30/19 10/12/19 History Prasterone (Dhea)/Calcium Carb 1 tab PO DAILY 09/30/19 10/12/19 History [Dhea 50 mg Tablet] Prevagen 1 tab PO DAILY 09/30/19 10/12/19 History Ubidecarenone [Co Q-10] 100 mg PO DAILY 09/30/19 10/12/19 History Alive 1 tab PO DAILY 10/12/19 10/12/19 History Fluticasone Nasal [place] [Flonase 1 spr EA NOSTRIL BID 10/12/19 10/12/19 History Nasal [place]] Nabumetone [Relafen] 750 mg PO DAILY PRN 10/12/19 10/12/19 History Allergies Allergy/AdvReac Type Severity Reaction Status Date / Time shellfish derived [Shellfish] Allergy Severe Swelling Verified 10/12/19 07:39 iodine Allergy Unknown Verified 10/12/19 07:39 cabbage AdvReac Mild Nausea & Verified 10/12/19 07:39 Vomiting & Diarrhea Physical Exam Vitals: Vital Signs Temp Pulse Resp BP Pulse Ox 10/12/19 07:26 98 F 70 18 148/79 97 10/12/19 06:30 63 18 140/78 96 10/12/19 06:00 68 17 134/72 96 10/12/19 05:52 134/72 97 10/12/19 03:58 98.2 F 76 19 191/100 94 L Intake and Output 10/11/19 10/12/19 10/12/19 22:59 06:59 14:59 Other: Weight 97.522 kg Results CBC & Chem 7: 10/12/19 04:16 10/12/19 04:16 Labs: Abnormal Lab Results - Last 24 Hours (Table) 10/12/19 Range/Units 04:16 Sodium 135 L (137-145) mmol/L Total Protein 5.8 L (6.3-8.2) g/dL Thrombosis Risk Factor Assmnt - DVT/VTE Prophylaxis DVT/VTE Prophylaxis: Pharmacologic Prophylaxis ordered
[2019-10-12] MEDS: INSULIN ASPART (NovoLOG) 100 UNIT/ML VIAL SQ SCH ×3 (11:46→21:06)
[2019-10-12 11:48] LABS: Glucose,Whole Blood 78 mg/dL (75-99)
[2019-10-12] MEDS: GABAPENTIN 300 MG CAP PO SCH ×2 (11:59→21:05)
[2019-10-12] MEDS: PANTOPRAZOLE 40 MG TABLET PO SCH (11:59)
--- NOTE | 2019-10-12 13:57 | MR ---
EXAMINATION TYPE: MR lumbar spine wo con DATE OF EXAM: 10/12/2019 COMPARISON: CT lumbar spine September 30, 2019. HISTORY: back pain TECHNIQUE: Multiplanar, multisequence imaging of the lumbar spine is performed without IV contrast. FINDINGS: Persistent dextroconvex scoliosis centered at L2 level. Sagittal images of the lumbar spine show vertebral body heights to remain satisfactory. Multilevel disc desiccation along with mild to m oderate multilevel disc space narrowing shows relative sparing of L3-L4 and L5-S1 levels. Moderate m ultilevel anterior spurring. The conus medullaris is normal in position and signal ending at L1-L2 di sc space. Some areas of heterogeneous Modic type I and type II endplate changes in the mid to lower l umbar spine are noted. Axial images at T12-L1 level shows mild broad-based disc bulge with paracentral disc protrusion compo nent mildly efface the anterior thecal sac. Axial images at L1-L2 level show moderate broad disc bulge and mild facet degenerative changes bilate rally. There is effacement of the anterior thecal sac. Bilateral neural foramina are patent. Axial images at L2-L3 level show moderate broad disc bulge with left paracentral disc protrusion comp onent effacing anterior thecal sac. There is [id number] left-sided anterior inferior neural for aminal narrowing. Right-sided neural foramen is patent. Axial images at L3-L4 level shows [id number] facet degenerative changes bilaterally. There is m [id number] broad disc bulge with right paracentral disc protrusion component. There is effacemen t of the anterior thecal sac. There is mild bilateral anterior inferior neural foraminal narrowing. Axial images at the L4-L5 level show moderate to advanced facet degenerative changes bilaterally. The re is moderate broad disc bulge with right foraminal disc protrusion component on axial image 10. Mil d left-sided anterior inferior neural foraminal narrowing is seen. There is more moderate to severe r ight-sided inferior neural foraminal narrowing. No definitive exiting nerve encroachment. Axial images at L5-S1 level show moderate to advanced right greater left facet degenerative changes. There is moderate broad-based posterior disc protrusion but spinal canal is preserved and there is in creased epidural fat. There is moderate to severe right greater than left bilateral neural foraminal narrowing with encroachment along inferior margin right L5 nerve on sagittal images 10 through 12 and left L5 nerve on sagittal image 1. Effacement also seen on axial image 5. Paraspinal muscle bulk is preserved. IMPRESSION: Persistent dextroconvex scoliosis and multilevel degenerative changes as detailed above. Most prominent spinal canal effacement or stenosis L4-L5 level. Disc herniation L5-S1 level appears t o encroach on both exiting L5 nerves. Correlate clinically.
--- NOTE | 2019-10-12 16:45 | P.PAINCN ---
History of Present Illness - Reason for Consult Consult date: 10/12/19 - History of Present Illness This is a 74-year-old patient with a chief complaint of chronic pain of low back pain with radiation to right buttock posterior thigh calf. \patient noticed that 2-3 weeks ago he started having pain in his back on the right side and right leg with no inciting event. He describes the pain as dull aching with that occasional sharp and stabbing quality to it. The pain radiates from the back into the right buttock hip and occasionally into the right calf. Leaning forward makes the pain better and any form of physical activity makes pain worse. There is no temporal nature to the pain. Currently a 1 out of 10. He has tried Medrol Dosepak with little relief. He has also tried some narcotic pain medications to no relief. He denies any lower extremity weakness bila terally. He also denies saddle anesthesia or any bowel or bladder incontinence. He was seen by the orthopedic spine service who did not recommend any form of surgical management and has been referred to the pain management team. Patient denies adverse drug effects from medications. Patient also denies new- onset weakness, bowel/bladder incontinence, or any other signs or symptoms of cauda equina syndrome. There are no signs of acute intoxication, and no indications of medication diversion or overuse. In addition to above, 13-point review of systems is also negative for chest pain, shortness of breath, changes in vision, changes in hearing, new onset weakness, abdominal pain, diarrhea, extreme fatigue, malaise, fever, skin changes, homicidal or suicidal ideation, or bowel or bladder incontinence. Physical exam: Vital Signs: Reviewed in EMR GENERAL: Well appearing, in no acute distress PSYCH: Mood and affect is appropriate. Awake, alert, and oriented SKIN: Skin color, texture, turgor normal, no rashes or lesions HEENT: Normocephalic, atraumatic. EOM intact CV: No pedal edema RESP: Respirations are unlabored, no audible wheezing GI: Abdomen non-distended MUSCULOSKELETAL: Mildly decreased hip flexion on the right hand side. No atrophy or tone abnormalities are noted. Lumbar spine: Straight leg raising in the sitting position is negative for radicular pain. No pain to palpation over the lumbar spine and paraspinous muscles. Negative for pain with facet loading and back extension/rotation. Normal range of motion without pain reproduction Buttocks: mild pain over PSIS on the right side. Extremities: Peripheral joint ROM is full and pain free without obvious instability or laxity in all four extremities. No edema or skin discolorations noted. Gait: Gait is normal NEUR: Bilateral upper and lower extremity coordination and muscle stretch reflexes are physiologic and symmetric. Negative clonus. No loss of sensation is noted. Cranial nerves are grossly intact. Imaging: Lumbar spine MRI lumbar MRI shows multilevel degenerative changes can refer to report. Most p rominently there is spinal canal space effacement and stenosis at the L4-L5 level as well as disc herniation at L5-S1 level approaching on both exiting L5 nerve roots. Assessment: 1. lumbar radiculopathy 2. Lumbar spondylosis 1. Explanation: Diagnoses, prognoses, and multiple treatment options including but not limited to physical therapy, interventional therapies, medication management and surgery were discussed with the patient and all questions were answered to the patient's satisfaction. 2. Investigations: 3. Counseling: The patient was counseled for 3 minutes on EXERCISE. Specif ically, the patient was instructed regarding the importance of exercises 4. Procedures: given the findings on MRI and his symptomology being only on the right side he could benefit from an L5 transforaminal epidural steroid injection on the right side. at this time the patient would like to think about the injection will give us a call if he like to schedule 5. Consultations: none 6. Medications: none 7. Disposition as needed for procedure Past Medical History Past Medical History: Cancer, Diabetes Mellitus, Hyperlipidemia, Hypertension, Myocardial Infarction (ID), Prostate Disorder Additional Past Medical History / Comment(s): PROSTATE AND GALLBLADDER CA, LEFT EYE BLOOD CLOT Last Myocardial Infarction Date:: . History of Any Multi-Drug Resistant Organisms: None Reported Past Surgical History: Adenoidectomy, Cholecystectomy, Heart Catheterization With Stent, Prostate Surgery, Tonsillectomy Additional Past Surgical History / Comment(s): EGD, colonoscopy Past Anesthesia/Blood Transfusion Reactions: No Reported Reaction Date of Last Stent Placement:: 2014 Past Psychological History: No Psychological Hx Reported Smoking Status: Never smoker Past Alcohol Use History: Occasional Additional Past Alcohol Use History / Comment(s): Patient smoked for about 10 years and quit 40 years ago. He worked in the [employer] department in the past. He is a . He drinks 1 shot of albert each year on special occasions. Past Drug Use History: None Reported - Past Family History Father Family Medical History: No Reported History Additional Family Medical History / Comment(s): Father was healthy. He lived until 83 yrs. Mother Family Medical History: No Reported History Additional Family Medical History / Comment(s): Mother was healthy. She live until 89yrs. Brother(s) Additional Family Medical History / Comment(s): The patient has one brother and he is still living. He has psychiatric issues from time in the [employer]. Sister(s) Additional Family Medical History / Comment(s): Patient has 1 sister and she is alive with no major medical problems. Son(s) Additional Family Medical History / Comment(s): Patient has one son with no major medical problems. He does not have any daughters. Medications and Allergies Home Medications Medication Instructions Recorded Confirmed Type Atorvastatin [Lipitor] 40 mg PO HS 11/14/16 10/12/19 History Cyanocobalamin [Vitamin B-12] 500 mcg PO TID 11/14/16 10/12/19 History Metoprolol Tartrate [Lopressor] 25 mg PO DAILY 11/14/16 10/12/19 History Cyclobenzaprine [Flexeril] 5 mg PO TID PRN 09/03/19 10/12/19 History Donepezil [Aricept] 10 mg PO HS 09/03/19 10/12/19 History Fluticasone/Vilanterol [Breo 1 puff INHALATION RT-DAILY 09/03/19 10/12/19 History Ellipta 200-25 Mcg INH] Gabapentin [Neurontin] 300 mg PO BID@1200,2100 09/03/19 10/12/19 History Glimepiride [Amaryl] 2 mg PO BID 09/03/19 10/12/19 History Isosorbide Mononitrate ER [Imdur] 60 mg PO DAILY 09/03/19 10/12/19 History Pantoprazole [Protonix] 40 mg PO DAILY@1200 09/03/19 10/12/19 History Potassium Chloride 10 meq PO DAILY 09/03/19 10/12/19 History Valsartan [Diovan] 160 mg PO BID 09/03/19 10/12/19 History hydroCHLOROthiazide 25 mg PO DAILY 09/03/19 10/12/19 History Cinnamon Bark [Cinnamon] 1,000 mg PO DAILY 09/30/19 10/12/19 History HYDROcodone/APAP 5-325MG [[place] 1 tab PO TID PRN 09/30/19 10/12/19 History 5-325] Lipo Flavonoid 2 tab PO TID-W/MEALS 09/30/19 10/12/19 History Prasterone (Dhea)/Calcium Carb 1 tab PO DAILY 09/30/19 10/12/19 History [Dhea 50 mg Tablet] Prevagen 1 tab PO DAILY 09/30/19 10/12/19 History Ubidecarenone [Co Q-10] 100 mg PO DAILY 09/30/19 10/12/19 History Alive 1 tab PO DAILY 10/12/19 10/12/19 History Fluticasone Nasal [place] [Flonase 1 spr EA NOSTRIL BID 10/12/19 10/12/19 History Nasal [place]] Nabumetone [Relafen] 750 mg PO DAILY PRN 10/12/19 10/12/19 History Allergies Allergy/AdvReac Type Severity Reaction Status Date / Time shellfish derived [Shellfish] Allergy Severe Swelling Verified 10/12/19 07:39 iodine Allergy Unknown Verified 10/12/19 07:39 cabbage AdvReac Mild Nausea & Verified 10/12/19 07:39 Vomiting & Diarrhea Physical Exam Vitals: Vital Signs Temp Pulse Pulse Resp BP BP Pulse Ox 10/12/19 14:38 98.0 F 81 16 156/89 96 10/12/19 08:52 98.0 F 80 16 188/90 96 10/12/19 07:26 98 F 70 18 148/79 97 10/12/19 06:30 63 18 140/78 96 10/12/19 06:00 68 17 134/72 96 10/12/19 05:52 134/72 97 10/12/19 03:58 98.2 F 76 19 191/100 94 L Intake and Output 10/12/19 10/12/19 10/12/19 06:59 14:59 22:59 Intake Total 125 Balance 125 Intake: Oral 125 Other: # Voids 1 Weight 97.522 kg 97.522 kg Results CBC & Chem 7: 10/12/19 04:16 10/12/19 04:16 Labs: Abnormal Lab Results - Last 24 Hours (Table) 10/12/19 Range/Units 04:16 Sodium 135 L (137-145) mmol/L Total Protein 5.8 L (6.3-8.2) g/dL PQRS Measure Charge Sheet PQRS Narrative: Smoking Status Former smoker Blood Pressure [Supine] 156/89 Blood Pressure 148/79 Pain Intensity [Right Lower 2 Back] Pain Intensity 3 Pain Scale Used Numeric (1 - 10) Scale Used Numeric (1 - 10) Home Medications: Ambulatory Orders Atorvastatin [Lipitor] 40 mg PO HS 11/14/16 Cyanocobalamin [Vitamin B-12] 500 mcg PO TID 11/14/16 Metoprolol Tartrate [Lopressor] 25 mg PO DAILY 11/14/16 Cyclobenzaprine [Flexeril] 5 mg PO TID PRN 09/03/19 Donepezil [Aricept] 10 mg PO HS 09/03/19 Fluticasone/Vilanterol [Breo Ellipta 200-25 Mcg INH] 1 puff INHALATION RT-DAILY 09/03/19 Gabapentin [Neurontin] 300 mg PO BID@1200,2100 09/03/19 Glimepiride [Amaryl] 2 mg PO BID 09/03/19 Isosorbide Mononitrate ER [Imdur] 60 mg PO DAILY 09/03/19 Pantoprazole [Protonix] 40 mg PO DAILY@1200 09/03/19 Potassium Chloride 10 meq PO DAILY 09/03/19 Valsartan [Diovan] 160 mg PO BID 09/03/19 hydroCHLOROthiazide 25 mg PO DAILY 09/03/19 Cinnamon Bark [Cinnamon] 1,000 mg PO DAILY 09/30/19 HYDROcodone/APAP 5-325MG [[place] 5-325] 1 tab PO TID PRN 09/30/19 Lipo Flavonoid 2 tab PO TID-W/MEALS 09/30/19 Prasterone (Dhea)/Calcium Carb [Dhea 50 mg Tablet] 1 tab PO DAILY 09/30/19 Prevagen 1 tab PO DAILY 09/30/19 Ubidecarenone [Co Q-10] 100 mg PO DAILY 09/30/19 Alive 1 tab PO DAILY 10/12/19 Fluticasone Nasal [place] [Flonase Nasal [place]] 1 spr EA NOSTRIL BID 10/12/19 Nabumetone [Relafen] 750 mg PO DAILY PRN 10/12/19
[2019-10-12 16:47] LABS: Glucose,Whole Blood 315 mg/dL (75-99)
[2019-10-12] MEDS: SYMBICORT 160-4.5 MCG INHALER INHALATION SCH (19:28)
[2019-10-12 20:36] LABS: Glucose,Whole Blood 312 mg/dL (75-99)
[2019-10-12] MEDS ORDERED: MELATONIN 3 MG TABLET PO STA (20:38)
[2019-10-12] MEDS ORDERED: ATORVASTATIN 40 MG TAB PO SCH (21:00)
[2019-10-12] MEDS ORDERED: DONEPEZIL 10 MG TAB PO SCH (21:00)
[2019-10-12] MEDS ORDERED: cloNIDine HCL 0.1 MG TAB PO PRN (23:55)
[2019-10-13] MEDS: ISOSORBIDE MONONITRATE ER 60 MG TAB.ER.24H PO SCH (03:40)
[2019-10-13 06:28] LABS: Glucose,Whole Blood 199 mg/dL (75-99)
[2019-10-13] MEDS: SYMBICORT 160-4.5 MCG INHALER INHALATION SCH (07:22)
[2019-10-13] MEDS: CYANOCOBALAMIN 500 MCG TAB PO SCH (07:47)
[2019-10-13] MEDS: POTASSIUM CHLORIDE ER 10 MEQ TAB.ER.PRT PO SCH (07:47)
[2019-10-13] MEDS: GABAPENTIN 300 MG CAP PO SCH (07:48)
[2019-10-13] MEDS: METOPROLOL TARTRATE 25 MG TAB PO SCH (07:48)
[2019-10-13] MEDS: INSULIN ASPART (NovoLOG) 100 UNIT/ML VIAL SQ SCH ×2 (07:49→11:33)
[2019-10-13] MEDS: PANTOPRAZOLE 40 MG TABLET PO SCH (07:49)
[2019-10-13] MEDS: FLUTICASONE 50MCG/SPRAY NASAL 16GM EA NOSTRIL SCH (07:49)
[2019-10-13] MEDS: hydroCHLOROthiazide 25 MG TAB PO SCH (07:50)
[2019-10-13] MEDS: dexAMETHasone 4 MG TAB PO SCH ×2 (07:50→12:41)
[2019-10-13] MEDS: GLIMEPIRIDE 2 MG TAB PO SCH (07:50)
[2019-10-13] MEDS ORDERED: HEPARIN SODIUM,PORCINE 5,000 UNIT/ML 1 ML VIAL SQ SCH (09:00)
[2019-10-13] MEDS ORDERED: LACTATED RINGERS 1,000 ML IV ONE (11:28)
[2019-10-13 11:32] LABS: Glucose,Whole Blood 180 mg/dL (75-99)
--- NOTE | 2019-10-13 11:45 | P.DS ---
Providers Date of admission: 10/12/19 07:15 Expected date of discharge: 10/13/19 Attending physician: Kristine Liu Consults: 10/12/19 07:15 Consult Physician Urgent Consulting Provider: Binu Umana Consult Reason/Comments: intractible back pain, mild stenosis on CT Do you want consulting provider notified?: Yes, Notify in am 10/12/19 07:41 Consult Physician Urgent Consulting Provider: Lawrence Muniz Consult Reason/Comments: back pain, pain management Do you want consulting provider notified?: Yes, Notify in am Primary care physician: Kristine Liu [facility] Course: History of Present Illness This is a 74-year-old male patient of Dr. Liu with past medical history of hypertension, hyperlipidemia, non-ST elevated myocardial infarction in 2017 status post stent to the mid circumflex, diabetes mellitus type 2 with diabetic neuropathy, dementia, prostate cancer status post resection, gastroesophageal reflux disease. Patient has had low back pain on the right lumbar area for the last couple months without any known injury. He states he got out of bed and the pain was there. He denies having any falls or any heavy lifting. He has been on a steroid taper and Byers without improvement he has had no lower extremity weakness. He has been to the emergency center twice recently for the same concerns. Initially presented on September 29 and CAT scan of the lumbar spine without contrast showed no acute osseous abnormality. Multilevel degenerative changes with moderate canal stenosis at L2-L3 and L4-L5 endearing degrees of neural foraminal narrowing. Patient was discharged home from the emergency center placed on a Medrol Dosepak. He returned on October 09 and was recommended to meat pickler the prescription for Byers which had been sent to his pharmacy by Dr. Liu and then follow-up with orthopedic and PCP. He returned on October 11 as pain became so severe and intolerable and it unable to sleep. He was found to be afebrile, initial blood pressure 191/100, heart rate 76, pulse ox 94% on room air. Blood work was unremarkable. Patient was given IV morphine and continued to have pain, placed on the observation unit and consult requested with pain management and orthopedic spine. MRI of the lumbar spine has been ordered. 10/12: MRI of the lumbar spine revealed persistent external convex scoliosis and multilevel degenerative changes. Most prominent spinal canal effacement or stenosis L4-L5 level. Disc herniation L5-S1 level appears to encroach on both exiting L5 nerves. Patient was seen yesterday by pain management but he declined having epidural abscess his pain has improved since he's been here. Patient does not recall refusing to have the epidural done due to his short-term memory deficit. He is willing to go forward with that at this point. He continues to have pain radiating into the right buttocks. Pain management will be contacted for epidural and plan for discharge following procedure. Patient has been afebrile, heart rate 91, blood pressure 186/85, pulse ox 93% on room air. Blood sugars this morning are running 180-199. Patient did have blood sugars last evening in the 300s. Patient has been evaluated by PT and OT with recommendations for rolling walker. Assessment and Plan 1. Intractable low back pain with right lower extremity radiculopathy secondary to L2/3 and L4/5 moderate spinal canal stenosis and multilevel degenerative disc disease. 2. Hypertension. 3. Hyperlipidemia. 4. History of non-ST elevated myocardial infarction and stenting of the mid circumflex. 5. Diabetes mellitus type 2. 6. Diabetic neuropathy. 7. Dementia with short-term memory deficit. 8. History of prostate cancer status post resection, stable. 9. Gastroesophageal reflux disease. Discharge plan: return home. We will book her has been ordered by oil field caser.. Impression and plan of care have been directed as dictated by the signing physi harman. Patricia Torres nurse practitioner acting as scribe for signing physician. Patient Condition at Discharge: Good Plan - Discharge Summary Discharge Rx Participant: No New Discharge Prescriptions: New dexAMETHasone [Hexadrol] 4 mg PO TID #18 tab Continue Cyanocobalamin [Vitamin B-12] 500 mcg PO TID Metoprolol Tartrate [Lopressor] 25 mg PO DAILY Atorvastatin [Lipitor] 40 mg PO HS Pantoprazole [Protonix] 40 mg PO DAILY@1200 Glimepiride [Amaryl] 2 mg PO BID Valsartan [Diovan] 160 mg PO BID Potassium Chloride 10 meq PO DAILY Cyclobenzaprine [Flexeril] 5 mg PO TID PRN PRN Reason: Muscle Spasm Isosorbide Mononitrate ER [Imdur] 60 mg PO DAILY hydroCHLOROthiazide 25 mg PO DAILY Gabapentin [Neurontin] 300 mg PO BID@1200,2100 Fluticasone/Vilanterol [Breo Ellipta 200-25 Mcg INH] 1 puff INHALATION RT- DAILY Donepezil [Aricept] 10 mg PO HS Ubidecarenone [Co Q-10] 100 mg PO DAILY Prasterone (Dhea)/Calcium Carb [Dhea 50 mg Tablet] 1 tab PO DAILY Cinnamon Bark [Cinnamon] 1,000 mg PO DAILY Prevagen 1 tab PO DAILY HYDROcodone/APAP 5-325MG [[place] 5-325] 1 tab PO TID PRN PRN Reason: Pain Lipo Flavonoid 2 tab PO TID-W/MEALS Alive 1 tab PO DAILY Nabumetone [Relafen] 750 mg PO DAILY PRN PRN Reason: Pain Fluticasone Nasal [place] [Flonase Nasal [place]] 1 spr EA NOSTRIL BID Discharge Medication List Atorvastatin [Lipitor] 40 mg PO HS 11/14/16 [History] Cyanocobalamin [Vitamin B-12] 500 mcg PO TID 11/14/16 [History] Metoprolol Tartrate [Lopressor] 25 mg PO DAILY 11/14/16 [History] Cyclobenzaprine [Flexeril] 5 mg PO TID PRN 09/03/19 [History] Donepezil [Aricept] 10 mg PO HS 09/03/19 [History] Fluticasone/Vilanterol [Breo Ellipta 200-25 Mcg INH] 1 puff INHALATION RT-DAILY 09/03/19 [History] Gabapentin [Neurontin] 300 mg PO BID@1200,2100 09/03/19 [History] Glimepiride [Amaryl] 2 mg PO BID 09/03/19 [History] Isosorbide Mononitrate ER [Imdur] 60 mg PO DAILY 09/03/19 [History] Pantoprazole [Protonix] 40 mg PO DAILY@1200 09/03/19 [History] Potassium Chloride 10 meq PO DAILY 09/03/19 [History] Valsartan [Diovan] 160 mg PO BID 09/03/19 [History] hydroCHLOROthiazide 25 mg PO DAILY 09/03/19 [History] Cinnamon Bark [Cinnamon] 1,000 mg PO DAILY 09/30/19 [History] HYDROcodone/APAP 5-325MG [[place] 5-325] 1 tab PO TID PRN 09/30/19 [History] Lipo Flavonoid 2 tab PO TID-W/MEALS 09/30/19 [History] Prasterone (Dhea)/Calcium Carb [[place]hea 50 mg Tablet] 1 tab PO DAILY 09/30/19 [His tory] Prevagen 1 tab PO DAILY 09/30/19 [History] Ubidecarenone [Co Q-10] 100 mg PO DAILY 09/30/19 [History] Alive 1 tab PO DAILY 10/12/19 [History] Fluticasone Nasal [place] [Flonase Nasal [place]] 1 spr EA NOSTRIL BID 10/12/19 [History] Nabumetone [Relafen] 750 mg PO DAILY PRN 10/12/19 [History] dexAMETHasone [Hexadrol] 4 mg PO TID #18 tab 10/13/19 [Rx] Follow up Appointment(s)/Referral(s): Kristine Liu MD [Primary Care Provider] - 1-2 days (office closed please call for an appointment) [facility] [NON-STAFF] - As Needed Serafin Middleton PAC [PHYSICIAN BAKER HEAD] - 11/03/19 1:30 pm (Patient may follow-up with Serafin Middleton PA-C or Dr. Mazin Umana at [facility] in 3 weeks following discharge.) [facility] [NON-STAFF] - 1 Week (Nurse will call you 10/14/2019) Patient Instructions/Handouts: Epidural Steroid Injection (DC) Discharge/Stand Alone Forms: Anes Pain/[place] Instructions Discharge Disposition: HOME SELF-CARE
[2019-10-13] MEDS ORDERED: fentaNYL (PF) 50 MCG/ML 2 ML AMP ONE (11:47)
[2019-10-13] MEDS ORDERED: methylPREDNISolone ACETATE 40 MG/ML 1 ML VIAL ONE (11:47)
--- NOTE | 2019-10-13 12:08 | P.PCN ---
Date of Procedure: 10/13/19 Procedure(s) Performed: PREOPERATIVE DIAGNOSIS: 1- Lumbar Degenerative Disc Diseases 2-Lumbar spondylosis with Facet arthropathy without myelopathy. 3-lumbar radiculopathy. 4-lumbar foraminal stenosis POSTOPERATIVE DIAGNOSIS: Same as preop diagnosis. PROCEDURE 1. Lumbar epidural steroid injection under fluoroscopic guidance at the L5-S1 level. (Fluoroscopy imaging was available in radiology department) ANESTHESIA: Local with 1% lidocaine 3 ml and , moderate sedation with intravenous fentanyle 50 Mcg EBL: Minimal PROCEDURE INDICATION: The patient with low back pain and radiculitis symptoms unresponsive to conservative treatment. Fluoroscopy was used to optimize visualization of the needle placement and to maximize safety. PROCEDURE DESCRIPTION / TECHNIQUE: The patient was seen and identified in the preoperative area. Risks, benefits, complications including but not limited to infections ,bleeding ,allergic reaction to the medications ,nerve damage and not complete pain releife , and alternatives were discussed with the patient. The patient agreed to proceed with the procedure and signed the consent. IV was started, and vital signs were stable. Patient was taken to the OR and time out was completed. The patient was placed in the prone position on procedure table and a pillow was placed under the abdomen to reduce lumbar lordosis. The lumbosacral area was prepped and draped in the usual sterile fashion.ere closely monitored during the procedure. Conscious sedation was used during the procedure to decrease patients anxiety. Vital signs was monitered during the entire procedure. Using anterior-posterior fluoroscopy, the L5-S1 interlaminar space was identified and the skin over this site was marked and then infiltrated with 1% lidocaine subcutaneously. Subsequently, a 20-gauge Tuohy epidural needle was inserted and advanced toward the epidural space using the ``Loss of resistance technique and guided by AP and lateral fluoroscopy, after negative aspiration for blood and CSF and in the absence of paresthesias. Again after negative aspiration, a 6 ml mixture containing 40 mg of Depo-medrol , and 2 ml of preservative free Normal Saline, and 2 ml of preservative free lidocaine 1% solution was injected and a washout of epidurogram was seen. Needle was withdrawn intact, skin was cleansed, and bandages were applied. COMPLICATIONS: None DISPOSITION / PLANS: The patient was placed in a supine position and transferred to the recovery area in a stable condition for observation. There was no evidence of lower extremity motor or sensory deficit after the procedure. Patient was discharged from the recovery room after meeting discharge criteria. Home discharge instructions were given to the patient by the staff. The patient was reexamined prior to discharge. The patient will schedule a follow up in the clinic in 2-4 weeks note= patient was seen yesterday and he was complaining of pain mainly on the right side, today he reported that he had some pain on the left side , and because patient had multifactorial causes of his low back pain ,patient could benefit more from doing L5-S1 interlaminar epidural steroid injection instead of doing L5-S1 right transforaminal.,
--- NOTE | 2019-10-13 12:10 | FL ---
EXAMINATION TYPE: FL guided pain mgmt statistic DATE OF EXAM: 10/13/2019 HISTORY: Fluoroscopy time 6 seconds of fluoroscopy provided. IMPRESSION: 1. Fluoroscopy time.
[2019-10-13 12:15] LABS: Glucose,Whole Blood 173 mg/dL (75-99)
[2019-10-13 12:27] VITALS: BP 172/81; PULSE 96; RESP 16; TEMP 97.8
--- NOTE | 2019-10-13 13:02 | P.PN ---
Progress Note - Text Progress Note Date: 10/13/19 Orthopedic spine: History of present illness: Patient is a very pleasant 74-year-old male who is seen and examined at bedside for follow-up evaluation of intractable low back pain. He has not had any change in his symptoms since being seen and examined yesterday. He was seen by pain management yesterday and underwent an injection today. He just returned back to his room. He is currently unsure if he has had any benefit from the injection. He is planning for discharge home today. Discharge has been ordered by medicine. Patient continues to be seen by Dr. Cosme Villalobos in medicine. Patient history: Patient states he has been experiencing increased low back pain over the past couple months without injuries. He has been following with his primary care provider in the outpatient setting without any significant control of his symptoms. He states he has tried narcotic pain medication as well as a steroid taper without significant improvement. He states his most significant pain is low back pain with pain radiating into the right buttock, down the posterior thigh and calf, and over the anterior jorgensen the top of the right foot. He denies any left lower extremity radiculopathy. He denies any lower extremity weakness bilaterally. He has been to the hospital 3 times over the past 11 days due to his symptoms. He was admitted this morning with consultations for orthopedic spine and pain management. An MRI of the lumbar spine was ordered and performed yesterday. He previously had CT imaging of the lumbar spine. Patient has a past medical history which includes diabetes mellitus, hyperlipidemia, hypertension, myocardial infarction, cancer, and prostate surgery. Physical exam: Patient is awake, alert, and oriented 3 Vital signs stable Good chest excursion with deep inspiration and expiration Examination of lumbar spine reveals skin is intact with no abrasions, lacerations, or bruises; no erythema, purulence or signs of infection Evidence of a 2.5 cm x 2.5 cm square area of skin changed it looks like scar formation of the upper lumbar spine over the midline/left paraspinals Dorsiflexion, plantarflexion, and extensor hallucis longus positive sustained bilaterally Lower extremity strength 5/5 bilaterally except for some difficulty with hip flexion on the right Patient is able to move legs independently in the bed without significant difficulty but is slow with hip flexion on the right Patellar reflex 2+ bilaterally No lower extremity hyperreflexia bilaterally Straight leg test negative bilateral lower extremities Negative Lasegue's test bilaterally No signs or symptoms of DVT; no calf pain No pain with internal and external rotation of the hips bilaterally Neurovascularly intact Pertinent studies: MRI lumbar spine taken on 10/12/2019: Pdegenerative scoliosis centered at L2; L2-3 left paracentral broad-based disc protrusion with mild to moderate left neural foraminal stenosis; L3-4 degenerative disc disease, moderate facet degenerative changes and right paracentral disc protrusion resulting in mild bilateral neuroforaminal narrowing; L4-5 advanced facet degenerative changes and broad-based disc protrusion with right foraminal component resulting in moderate central canal stenosis and severe right and mild left neural foraminal stenosis; L5-S1 broad-based disc protrusion and advanced facet degenerative changes resulting in [id number] right greater than left neural foraminal stenosis with some encroachment to the exiting L5 nerve simple no evidence of vertebral body compression fracture X-ray of the right hip and pelvis taken on 10/10/2019: Degenerative changes of the lower lumbar spine cervical sacroiliac joint spacing appears adequately maintained; hypertrophy at the acetabulum bilaterally; hip joint spacing appears to be fairly well maintained bilaterally no evidence of fracture dislocation of the pelvis; surgical clips in the pelvis CT lumbar spine taken on 09/30/2019: Degenerative scoliosis; multilevel degenerative disc disease, osteophytic spurring, and facet arthropathy resulting in very degrees of neural foraminal narrowing; L2-3 moderate spinal canal stenosis cervical L4-5 asymmetric degenerative disc disease and moderate spinal canal stenosis; no acute osseous abnormality; no evidence of to body compression fracture Assessment: Intractable low back pain L4-5 central canal stenosis and right neural foraminal stenosis L2-3 left neural foraminal stenosis Right lower extremity radiculopathy Degenerative scoliosis L1-2, L2-3, and L4-5 umbar multilevel degenerative disc disease Lumbar osteophytic spurring Diabetes mellitus Hypertension Hyperlipidemia History of cancer History of prostate surgery History of myocardial infarction Plan: 1. Patient has been experiencing ongoing low back pain and right lower extremity radiculopathy of the past 2 months without injury. He has been working with his primary care provider in the outpatient setting without significant control of his symptoms. He has presented to the emergency department 3 times in the past [address] imaging lumbar spine does show significant degenerative changes at his lumbar spine with multilevel spinal stenosis. Lumbar MRI imaging shows significant changes most significant at L4- 5. Patient was seen by pain management and underwent an injection today. He is ready for discharge home today. He would like to continue working through conservative treatment options. At this time, we'll plan to continue conservative treatment options. Patient will be cleared for discharge from an orthopedic spine standpoint. We will plan follow-up in the outpatient setting in approximately 3 weeks for further evaluation. Depending on his progress with conservative care, we will discuss further treatment options at that time including the possibility of surgical intervention if he were to fail outpatient conservative treatment. Patient may follow-up with Serafin Middleton PA-C or Dr. Mazin Umana at [facility] in 3 weeks following discharge. 2. Continue pain control medications as prescribed 3. Patient continue be seen in exam by Dr. Villalobos in medicine for all his medical diagnoses including intractable low back pain, right lower extremity radiculopathy, hypertension, hyperlipidemia, and diabetes mellitus
== END 2019-10-13 13:55 | disposition home or self-care (01) ==
LOC: EC 03:55 → 1SOBS 07:15
PROVIDERS: ADMIT Family Medicine; ATTEND Family Medicine
DX: M51.16 Intervertebral disc disorders with radiculopathy, lumbar region (principal); E11.40 Type 2 diabetes mellitus with diabetic neuropathy, unspecified; E78.5 Hyperlipidemia, unspecified; F03.90 Unspecified dementia, unspecified severity, without behavioral disturbance, psychotic disturbance, mood disturbance, and anxiety; G47.00 Insomnia, unspecified; I10 Essential (primary) hypertension; I25.2 Old myocardial infarction; K21.9 Gastro-esophageal reflux disease without esophagitis; M41.50 Other secondary scoliosis, site unspecified; M47.16 Other spondylosis with myelopathy, lumbar region; M48.061 Spinal stenosis, lumbar region without neurogenic claudication; M51.06 Intervertebral disc disorders with myelopathy, lumbar region; Z79.1 Long term (current) use of non-steroidal anti-inflammatories (NSAID); Z79.84 Long term (current) use of oral hypoglycemic drugs; Z79.899 Other long term (current) drug therapy; Z85.09 Personal history of malignant neoplasm of other digestive organs; Z85.46 Personal history of malignant neoplasm of prostate; Z87.891 Personal history of nicotine dependence
CPT/HCPCS: 96372; 96361; 96374; 99285; 36415; 94640 ×2; 97161; 97166; 80053; 85025; 81003; 72148; 62323; G0378 ×2; J8540 ×2; J2270; J1030; J1644; J3010; J7512